=== PATIENT | female | born 1960 | race Caucasian/White ===

== ENCOUNTER 2017-05-31 18:51 | Inpatient (IN) | payer OTHER ==
[~2017-05-31] VITALS: Ht 167.6 cm; Wt 90.7 kg
--- NOTE | 2017-05-31 19:00 | NUR ---
REC'D PT FROM ER VIA [facility]. PT IS AAOX4. TELE #25 SR WITH ELEVATED T-WAVE. PT C/O 5/10 CHEST TIGHTNESS AND 6/10 BACK PAIN. LUNG SOUNDS CLEAR. NO SOB NOTED. 2+ EDEMA NOTED TO BLE. PT IS INCONTINENT OF URINE. IV NOTED TO RFA. INTACT AND PATENT. ORIENTED PT TO CALL LIGHT. BED IN LOWEST POSITION. WILL ENDORSE TO PRIMARY RN.
[2017-05-31 19:02] VITALS: BP 165/103
[2017-05-31] MEDS ORDERED: ZOFRAN8 MG PO (19:27)
[2017-05-31] MEDS ORDERED: HYDROCORTISONE20 MG PO (19:28)
[2017-05-31] MEDS ORDERED: CYMBALTA60 M1 PO (19:28)
[2017-05-31] MEDS ORDERED: NORCO1 TA2 PO (19:29)
[2017-05-31] MEDS ORDERED: GOOD SENSE OMEP20 MG PO (19:30)
[2017-05-31] MEDS ORDERED: PREMPRO 0.625-1 EACH PO (19:30)
[2017-05-31] MEDS ORDERED: MSC15 PO (19:31)
[2017-05-31] MEDS ORDERED: FLO1 PO (19:32)
--- NOTE | 2017-05-31 20:00 | NUR ---
RECEIVED REPORT FROM MAR DIAZ. ASSESSED PT, IN NO ACUTE DISTRESS. STILL COMPLAINING OF 5/10 BACK PAIN. WILL MEDICATE PER PRN ORDERS. TELE MON ATTACHED. DENIES OF ANY CHEST DISCOMFORT AT THIS TIME. ON TELE MON 25 ST/SR WITH T WAVE ELEVATION ON THE MONITOR. IV ON RFA INFILTRATED AND REPLACED ON L HAND 22 GAUGE. NO SOB. LUNGS CTA. IN RA WITH SAT OF 97%. PT REPORTS OF URINE INCONTINENCE BUT INFORMED PT THAT WE WILL NEED TO OBTAIN URINE SAMPLE ONCE SHE FEELS THE NEED TO VOID. WILL MANAGE PT'S BP AND PAIN MANAGEMENT. SAFETY MEASURES ENSURED. CALL LIGHT WITHIN REACH. WILL CONT TO MONITOR PT.
--- NOTE | 2017-05-31 20:05 | NUR ---
PT AAOX4. STILL PRESENTING WITH L ARM NUMBNESS AND TINGLING. HAND WORK STATION SUPPORT SPECIALIST EQUAL ON BI HANDS. ROM ACTIVE ON ALL JOINTS. NEG ON DROOP/PARALYSIS. GRIN EQUAL IN SYMMETRY. GEN WEAKNESS BUT ABLE TO STAND AND AMBULATE WITH MINIMAL ASSISTANCE. DENIES OF OLIVER/DIZZINESS. WILL CONT TO MONITOR.
[2017-05-31 20:18] LABS: BASOPHIL % 0.1 % (0-2); PLATELET COUNT 370 x10^3mcL (130-400)
[2017-05-31 20:22] LABS: RED CELL DISTRIBUTION WIDTH 15.7 % (11.5-14.5)
[2017-05-31 20:40] VITALS: BP 162/88
[2017-05-31 20:41] LABS: T3 TOTAL 1.32 ng/mL
[2017-05-31 20:59] LABS: FREE T4 1.04 ng/dL (0.76-1.46); FREE THYROXINE INDEX 3.4 ug/dL (1.4-4.5); T4(THYROXINE) 9.7 ug/dL (4.7-13.3)
[2017-05-31 21:32] LABS: CALCIUM 9.1 mg/dL (8.5-10.1); CARBON DIOXIDE 31.2 mmol/L (21-32); CREATININE SERUM 1.2 mg/dL (0.6-1.0); MAGNESIUM 1.5 mg/dL (1.8-2.4); PHOSPHOROUS 2.7 mg/dL (2.5-4.9)
[2017-05-31 21:33] LABS: CHOLESTEROL/HDL RATIO 2.6
--- NOTE | 2017-05-31 21:33 | NUR ---
RECEIVED CALL REGARDING PT'S POTASSIUM CRITICAL LEVEL OF 2.9. PAGED DR. QUACH, WAITING FOR A CALL BACK.
[2017-05-31 21:36] LABS: POTASSIUM SERUM 2.9 mmol/L (3.5-5.1)
[2017-05-31 22:03] VITALS: BP 147/82
--- NOTE | 2017-05-31 23:46 | NUR ---
US CAROTID RESULT HAS CAME BACK. MADE DR QUACH AWARE.
[2017-06-01 02:12] LABS: microscopic required? YES; urine erythrocyte TRACE (NEGATIVE)
[2017-06-01 02:23] LABS: AMPHETAMINE QUAL UR NONE DETECTED (NEG <=1000)
--- NOTE | 2017-06-01 03:41 | NUR ---
PT TAKEN FOR HEAD CT BY CT. MAILE
--- NOTE | 2017-06-01 04:30 | NUR ---
PT TAKEN BACK FROM CT. PT'S L HAND IV ACCIDENTALLY REMOVED BY PT AND REPLACED WITH RFA 22 G. PT IN NO ACUTE DISTRESS AAOX4. ABLE TO AMBULATE WITH MINIMAL ASSISTANCE. NEG ON DROOP PARALYSIS. GRIN EQUAL. BI HAND SUMMER COUNSELOR EQUAL IN STRENGTH. DENIES OF OLIVER/DIZZINESS. SAFETY MEASURES ENSURED. CALL LIGHT IS WITHIN REACH.
--- NOTE | 2017-06-01 04:58 | NUR ---
RECEIVED CALL FROM ONLINE RADIOLOGY FOR HEAD CT RESULT. MADE DR QUACH AWARE. PT REMAINED ALERT AND ORIENTED THROUGH OUT. NEG ON DROOP/PARALYSIS. HAND HAMMER RUNNER STRONG AND EQUAL. GRIN SYMMETRICAL. ACTIVE ROM ON ALL EXTREMITIES. OBEYS COMMANDS. DENIES OF OLIVER/DIZZINESS. PAIN MANAGEMENT ENFORCED. SAFETY MEASURES WERE ENSURED. CALL LIGHT WITHIN REACH.
[2017-06-01 05:39] VITALS: BP 160/96
[2017-06-01 06:29] LABS: PLATELET COUNT 350 x10^3mcL (130-400)
[2017-06-01 06:35] LABS: CALCIUM 8.6 mg/dL (8.5-10.1); CARBON DIOXIDE 28.1 mmol/L (21-32); CREATININE SERUM 1.1 mg/dL (0.6-1.0); POTASSIUM SERUM 3.6 mmol/L (3.5-5.1)
[2017-06-01 06:37] LABS: RED CELL DISTRIBUTION WIDTH 15.9 % (11.5-14.5)
--- NOTE | 2017-06-01 07:20 | NUR ---
REASSESSMENT DONE. IV PATENT, INFUSING WELL TO RFA#22. HEATING PAD PLACED AT LOWER BACK. BED IN LOWEST POSITION, CALL LIGHT WITHIN REACH.
[2017-06-01 07:32] LABS: MAGNESIUM 1.6 mg/dL (1.8-2.4); PHOSPHOROUS 3.2 mg/dL (2.5-4.9)
[2017-06-01 07:43] LABS: BAND NEUTROPHIL 5 % (0-10); MONOCYTE 3 % (0-7); SEGMENTED NEUTROPHILS 82 % (37-75)
[2017-06-01 07:45] LABS: PLATELET MORPHOLOGY FEW LARGE PLATELETS; rbc morphology (normal/abnorm) NORMAL (NORMAL)
[2017-06-01 09:10] VITALS: BP 137/76
--- NOTE | 2017-06-01 11:20 | NUR ---
PT STATES PAIN TO LOWER BACK HAS DECREASED IN INTENSITY 4/10 AFTER MEDICATION ADMINISTRATION. HEATING PAD IN PLACE. CAQLL LIGHT WITHIN REACH.
[2017-06-01 13:54] VITALS: BP 134/84
--- NOTE | 2017-06-01 13:55 | NUR ---
PASSED Balanced. PT TOLERATED WELL. IV TO RFA INFILTRATED. IV DC'D CATHETER INTACT.
--- NOTE | 2017-06-01 14:30 | NUR ---
IV ACCESS RESTARTED TO LEFT HAND #24. IV FLUIDS RESTARTED. ACCESS ACQUIRED BY MAR DIAZ.
[2017-06-01] MEDS ORDERED: PREMPRO PO (16:19)
--- NOTE | 2017-06-01 17:00 | NUR ---
PT C/O PAIN 7/10 AT LOWER BACK. MEDICATED PER EMAR. PT TOLERATED WELL. PT C/O PAIN AT IV ACCESS SITE TO LEFT HAND. APPLIED ICE PACK TO SITE. PT REPORTS COMFORT. CALL LIGHT WITHIN REACH.
[2017-06-01 17:35] VITALS: BP 145/83
--- NOTE | 2017-06-01 18:15 | NUR ---
PT STATES BACK PAIN 5/10. REPORTS COMFORT UNLESS MOVING. DENIES CHEST PAIN AT BEDSIDE. CALL LIGHT WITHIN REACH.
--- NOTE | 2017-06-01 19:52 | NUR ---
RECEIVED REPORT FROM MAR PAIGE. PT RESTING IN BED COMFORTABLY IN NO ACUTE DISTRESS OR DISCOMFORT. AAOX4. DENIES OF OLIVER/DIZZINESS. ON TELE MON 25 SR/ST. DENIES OF ANY CHEST DISCOMFORT AT THIS TIME. PER PULSES MOD. TRACE EDEMA ON BLE. IN RA WITH SAT OF 98%. BREATHING EVENLY AND UNLABORED. NO SOB NOTED. CRACKLES ON RUL. CLEAR ON JOSE ON AUSCULTATION. BS ACTIVE. ABD SOFT AND OBESE. LAST BM TODAY FORMED STOOL PER PT. VOIDS FREELY WITHOUT ANY PAIN. GEN WEAKNESS. AMBULATES WITH MIN ASSIST. SKIN DRY AND INTACT. DENIES OF ANY PAIN AT THIS TIME. IV ON PATENT. SAFETY MEASURES ENSURED. INSTRUCTED PT TO CALL FOR ANY NEEDS/ASSISTANCE. CALL LIGHT WITHIN REACH. WILL CONT TO MONITOR PT.
[2017-06-01 22:17] VITALS: BP 111/66
--- NOTE | 2017-06-02 05:13 | NUR ---
PT HAD PERIODS OF HEADACHE. PAIN MANAGEMENT ENFORCED. DENIED ANY CHEST DISCOMFORT. SAFETY MEASURES WERE ENSURED. CALL LIGHT WITHIN REACH.
[2017-06-02 05:51] VITALS: BP 140/83
[2017-06-02 06:56] LABS: BASOPHIL % 0.1 % (0-2); PLATELET COUNT 365 x10^3mcL (130-400)
[2017-06-02 07:12] LABS: CALCIUM 8.3 mg/dL (8.5-10.1); CARBON DIOXIDE 28.4 mmol/L (21-32); CHLORIDE SERUM 104 mmol/L (98-107); GFR1 > 60 mL/min; GLUCOSE SERUM 111 mg/dL (74-106); POTASSIUM SERUM 3.2 mmol/L (3.5-5.1); SODIUM SERUM 141 mmol/L (136-145)
--- NOTE | 2017-06-02 07:20 | NUR ---
REASSESSMENT DONE. IV PATENT. DENIES PAIN AT SITE. STATES BACK PAIN UNDER CONTROL AT MOMENT. BED IN LOWEST POSITION, CALL LIGHT WITHIN REACH.
[2017-06-02 08:46] VITALS: BP 122/74
--- NOTE | 2017-06-02 09:15 | NUR ---
PASSED [facility]. PT TOLERATED WELL. NO DISTRESS AT MOMENT. CALL LIGHT WITHIN REACH.
[2017-06-02] MEDS ORDERED: ZOFRAN8 MG PO (09:59)
[2017-06-02] MEDS ORDERED: ECO81 PO (10:00)
[2017-06-02] MEDS ORDERED: METOPROLOL TART25 M1 PO (10:00)
[2017-06-02] MEDS ORDERED: ZES5 PO (10:00)
[2017-06-02] MEDS ORDERED: PRI20 PO (10:03)
[2017-06-02 12:27] VITALS: BP 149/94
--- NOTE | 2017-06-02 13:40 | NUR ---
DISCHARGE INSTRUCTIONS GIVEN TO PATIENT AND . BOTH VERBALIZED UNDERSTANDING FOR FOLLOW UP APPOINTMENTS, AND PRESCRIPTION ORDERS. IV DC'D CATHETER INTACT, NO PHLEBITIS. PT TRANSPORTED OUT OF UNIT SAFELY VIA WHEELCHAIR.
== END 2017-06-02 13:47 | disposition home or self-care (01) | DRG 203 ==
LOC: DU 18:51 → MU 06-02 09:26
PROVIDERS: Family Medicine; ADMIT Family Medicine
DX: M94.0 Chondrocostal junction syndrome [Tietze] (principal); E27.40 Unspecified adrenocortical insufficiency; H26.8 Other specified cataract; R73.03 Prediabetes; G90.8 Other disorders of autonomic nervous system; D72.829 Elevated white blood cell count, unspecified; E87.6 Hypokalemia; E83.42 Hypomagnesemia; Z53.29 Procedure and treatment not carried out because of patient's decision for other reasons; M54.5 Low back pain; Z79.899 Other long term (current) drug therapy; Z88.2 Allergy status to sulfonamides; Z88.5 Allergy status to narcotic agent
CPT/HCPCS: 82962; 83880; 84439; 97110-GP; J2270; J2405; J3475; J3480; J7030; Q0092

== ENCOUNTER 2018-11-22 14:19 | Inpatient (IN) | payer OTHER ==
[~2018-11-22] VITALS: Ht 167.6 cm; Wt 99.5 kg
[~2018-11-22 14:19] MED LIST: CYMBALTA60 M1 PO; ECO81 PO; FLO1 PO; GOOD SENSE OMEP20 MG PO; HYDROCORTISONE20 MG PO; METOPROLOL TART25 M1 PO; MSC15 PO; NORCO1 TA2 PO; PREMPRO 0.625-1 EACH PO; PREMPRO PO; PRI20 PO; ZES5 PO; ZOFRAN8 MG PO
[2018-11-22 16:49] LABS: PLATELET COUNT 396 x10^3mcL (130-400)
[2018-11-22 16:55] LABS: RED CELL DISTRIBUTION WIDTH 18.3 % (11.5-14.5)
[2018-11-22 17:08] LABS: BAND NEUTROPHIL 2 % (0-10); BASOPHIL 0 % (0-2); MONOCYTE 4 % (0-7); SEGMENTED NEUTROPHILS 88 % (37-75)
[2018-11-22 17:09] LABS: rbc morphology (normal/abnorm) NORMAL (NORMAL)
[2018-11-22 17:22] LABS: BILIRUBIN TOTAL 0.45 mg/dL (0.20-1.00); CALCIUM 8.7 mg/dL (8.5-10.1); CARBON DIOXIDE 27.8 mmol/L (21-32); CREATININE SERUM 1.8 mg/dL (0.6-1.0); MAGNESIUM 1.1 mg/dL (1.8-2.4); T4(THYROXINE) 5.7 ug/dL (4.7-13.3); TOTAL PROTEIN, SERUM 6.8 g/dL (6.4-8.2)
[2018-11-22 17:24] LABS: ALBUMIN 3.1 g/dL (3.4-5.0)
[2018-11-22 17:25] LABS: POTASSIUM SERUM 2.4 mmol/L (3.5-5.1)
[2018-11-22 17:42] LABS: microscopic required? YES; urine erythrocyte TRACE (NEGATIVE)
[2018-11-22 22:00] VITALS: BP 136/80
[2018-11-22 22:29] LABS: CALCIUM 7.7 mg/dL (8.5-10.1); CARBON DIOXIDE 23.1 mmol/L (21-32); CREATININE SERUM 1.7 mg/dL (0.6-1.0)
[2018-11-22 23:40] VITALS: BP 110/66
[2018-11-23 03:26] VITALS: BP 116/68
[2018-11-23 05:53] LABS: PLATELET COUNT 104 x10^3mcL (130-400); RED CELL DISTRIBUTION WIDTH 18.4 % (11.5-14.5)
[2018-11-23 05:57] LABS: MONOCYTE 1 % (0-7); SEGMENTED NEUTROPHILS 93 % (37-75)
[2018-11-23 06:02] LABS: acanthocyte (spur cell) 2+; rbc morphology (normal/abnorm) ABNORMAL (NORMAL)
[2018-11-23 07:05] LABS: CALCIUM 7.6 mg/dL (8.5-10.1); CARBON DIOXIDE 21.3 mmol/L (21-32); CREATININE SERUM 1.6 mg/dL (0.6-1.0); POTASSIUM SERUM 3.3 mmol/L (3.5-5.1)
[2018-11-23 07:30] VITALS: BP 110/64
[2018-11-23 11:30] VITALS: BP 85/70
[2018-11-23 16:29] VITALS: BP 83/55
[2018-11-23 19:40] VITALS: BP 139/52
[2018-11-23 22:37] LABS: AMPHETAMINE QUAL UR NONE DETECTED (See below)
[2018-11-24 03:56] VITALS: BP 140/97
[2018-11-24 05:35] LABS: PLATELET COUNT 329 x10^3mcL (130-400)
[2018-11-24 05:45] LABS: RED CELL DISTRIBUTION WIDTH 18.1 % (11.5-14.5)
[2018-11-24 05:54] LABS: BAND NEUTROPHIL 1 % (0-10); MONOCYTE 3 % (0-7); SEGMENTED NEUTROPHILS 86 % (37-75)
[2018-11-24 05:56] LABS: PLATELET MORPHOLOGY PLATELETS NORMAL; rbc morphology (normal/abnorm) ABNORMAL (NORMAL)
[2018-11-24 06:04] LABS: CALCIUM 8.3 mg/dL (8.5-10.1); CARBON DIOXIDE 24.6 mmol/L (21-32); CREATININE SERUM 1.8 mg/dL (0.6-1.0); POTASSIUM SERUM 3.2 mmol/L (3.5-5.1)
[2018-11-24 08:00] VITALS: BP 133/65
[2018-11-24 11:52] VITALS: BP 131/64
[2018-11-24 17:53] VITALS: BP 123/85
[2018-11-24 21:14] VITALS: BP 161/90
[2018-11-24 23:12] VITALS: BP 151/89
[2018-11-25 05:16] VITALS: BP 164/93
[2018-11-25 06:54] LABS: CALCIUM 8.6 mg/dL (8.5-10.1); CARBON DIOXIDE 23.2 mmol/L (21-32); CREATININE SERUM 1.6 mg/dL (0.6-1.0); POTASSIUM SERUM 4.1 mmol/L (3.5-5.1)
[2018-11-25 07:25] LABS: BASOPHIL % 0.2 % (0-2); PLATELET COUNT 331 x10^3mcL (130-400)
[2018-11-25 07:29] LABS: RED CELL DISTRIBUTION WIDTH 17.9 % (11.5-14.5)
[2018-11-25 09:59] VITALS: BP 161/84
[2018-11-25 15:11] VITALS: BP 153/71
[2018-11-25 17:29] VITALS: BP 155/71
[2018-11-25 21:26] VITALS: BP 165/94
[2018-11-25 22:00] VITALS: BP 147/77
[2018-11-26 06:26] VITALS: BP 155/95
[2018-11-26 10:15] VITALS: BP 160/83
[2018-11-26 13:20] VITALS: BP 163/89
[2018-11-26 16:54] VITALS: BP 180/96
[2018-11-26 17:44] VITALS: Ht 167.6 cm; Wt 99.5 kg
[2018-11-26 21:06] VITALS: BP 153/93
[2018-11-27] VITALS (7 sets, daily range): BP systolic 141–177; BP diastolic 79–101
== END 2018-11-27 20:45 | DRG 190 ==
LOC: ED 14:19 → IC 18:30 → DU 11-24 16:24
PROVIDERS: Emergency Medicine; Internal Medicine Cardiovascular Disease; ADMIT Internal Medicine
DX: I21.A1 Myocardial infarction type 2 (principal); E87.0 Hyperosmolality and hypernatremia; E11.22 Type 2 diabetes mellitus with diabetic chronic kidney disease; N17.9 Acute kidney failure, unspecified; E27.1 Primary adrenocortical insufficiency; E83.42 Hypomagnesemia; N18.3 Chronic kidney disease, stage 3 (moderate); B35.6 Tinea cruris; E86.0 Dehydration; I48.0 Paroxysmal atrial fibrillation; I25.10 Atherosclerotic heart disease of native coronary artery without angina pectoris; E66.9 Obesity, unspecified; G89.29 Other chronic pain; M54.9 Dorsalgia, unspecified; I12.9 Hypertensive chronic kidney disease with stage 1 through stage 4 chronic kidney disease, or unspecified chronic kidney disease; E87.6 Hypokalemia; N39.0 Urinary tract infection, site not specified; Z68.33 Body mass index [BMI] 33.0-33.9, adult; Z85.41 Personal history of malignant neoplasm of cervix uteri; Z92.21 Personal history of antineoplastic chemotherapy; Z88.2 Allergy status to sulfonamides; Z88.6 Allergy status to analgesic agent
CPT/HCPCS: 83880; 97112-GP; 97530-GP; A9500; J0282; J1160; J1720; J2270; J2543; J2550; J2785; J3475; J3480; J3490; J7030; J7040; J7060; Q0092; Q0162

== ENCOUNTER 2019-01-23 13:37 | Inpatient (IN) | payer OTHER ==
[~2019-01-23] VITALS: Ht 172.7 cm; Wt 77.1 kg
[2019-01-23 13:40] VITALS: Ht 172.7 cm; Wt 77.1 kg
--- NOTE | 2019-01-23 13:59 | NUR ---
PT AWAKE AND ALERT. PT C/O STOOL INCONTINENCE AND GENERALIZED WEAKNESS. PT ON FULL CM. CALL LIGHT WITHIN REACH. NAD. RESP E/U.
[2019-01-23 14:43] LABS: BASOPHIL % 0.3 % (0-2)
[2019-01-23 14:47] LABS: PLATELET COUNT 443 x10^3mcL (130-400); RED CELL DISTRIBUTION WIDTH 16.2 % (11.5-14.5)
[2019-01-23 14:57] LABS: microscopic required? NO
[2019-01-23 15:03] LABS: BILIRUBIN TOTAL 0.3 mg/dL (0.20-1.00); CALCIUM 8.7 mg/dL (8.5-10.1); CARBON DIOXIDE 26.3 mmol/L (21-32); CREATININE SERUM 1.4 mg/dL (0.6-1.0)
[2019-01-23 15:06] LABS: ALBUMIN 2.7 g/dL (3.4-5.0); POTASSIUM SERUM 2.6 mmol/L (3.5-5.1); TOTAL PROTEIN, SERUM 5.8 g/dL (6.4-8.2)
[2019-01-23 15:07] LABS: UA SPECIFIC GRAVITY <=1.005 (1.005-1.035); urine erythrocyte NEGATIVE (NEGATIVE)
--- NOTE | 2019-01-23 15:33 | NUR ---
MD FONG AND PRIMARY NURSE GABBIE INFORMED LACTIC ACID 2.7
--- NOTE | 2019-01-23 17:33 | NUR ---
PT MEDICATED PER DOCTORS ORDERS
[2019-01-23] MEDS ORDERED: FLO1 PO (17:34)
[2019-01-23] MEDS ORDERED: DULOXETINE60 MG PO (17:34)
[2019-01-23] MEDS ORDERED: ZESTRIL5 MG PO (17:35)
[2019-01-23] MEDS ORDERED: PEPCID20 MG PO (17:35)
[2019-01-23] MEDS ORDERED: NORCO1 TA2 PO (17:36)
[2019-01-23] MEDS ORDERED: METOPROLOL TART25 M1 PO (17:38)
[2019-01-23] MEDS ORDERED: [UNRECOGNIZED DRUG - CODE] PO (17:38)
[2019-01-23] MEDS ORDERED: GOOD SENSE ASPI81 M3 PO (17:39)
[2019-01-23] MEDS ORDERED: MORPHINE SULFAT15 M7 PO (17:39)
--- NOTE | 2019-01-23 17:43 | NUR ---
PT CLEANED AFTER LOSE STOOL. PT ON CLEAN DRY CHUCKS. SKIN BREAKDOWN NOTED TO BUTTOCKS, WITH ERYTHEMA NOTED. SKIN IS INTACT. PT REPORTS HAVING SENSITIVE SKIN FROM MULTIPLE STOOL INCONTINENCE WHILE AT HOME.
--- NOTE | 2019-01-23 17:53 | NUR ---
DR FONG NOTIFIED THAT PT QUALIFIES FOR SEVERE SEPSIS PER PURPLE SHEET PROTOCOL. ASKED IF HE WOULD LIKE ANTIBIOTICS, DR FONG STATES "I DO NOT THINK IT IS SEPSIS, BECAUSE HER WBCS ARE ELEVATED BECAUSE SHE IS ON STEROIDS"
--- NOTE | 2019-01-23 18:17 | NUR ---
REPORT CALLED TO ARUNA, WAITING FOR ADMIT ORDERS
--- NOTE | 2019-01-23 18:31 | NUR ---
RECEIVED PT VIA [facility] FROM E/D, ACCOMPANIED BY RN AND TRANSPORTER. PT DROWSY, "FATIGUED", BUT ORIENTED X 4, CALM, COOPERATIVE. ON TELE # 7, NSR, HR 95, DENIES CHEST PAIN OR DISCOMFORT AT THIS TIME. NO ACUTE RESPIRATORY DISTRESS NOTED. ABD SOFT, ROUND, NON-TENDER, NORMOACTIVE BOWEL SOUNDS X 4 QUADS, LAST BM 01/23/19, DIARRHEA, INCONTINENT OF BOWEL AND BLADDER. GENERALIZED WEAKNESS, USES WALKER AT HOME, REFUSES TO AMBULATE HERE 2/2 GENERALIZED WEAKNESS; FALL RISK PROTOCOL IN PLACE. PERIANAL MASD 2/2 INCONTINENCE, TX W/ Z-GUARD. C/O GENERALIZED ACHING BODY PAIN, 02/23. IV SITE LH 22G, CDI. ORIENTED PT TO ROOM, BED CONTROLS, CALL LIGHT SYSTEM. SIDE RAILS UP X 2, BED IN LOW POSITION. WILL ENDORSE TO MANDI/MAR ONTIVEROS.
[2019-01-23 18:58] LABS: PHOSPHOROUS 2.5 mg/dL (2.5-4.9)
[2019-01-23 19:16] VITALS: BP 146/87
[2019-01-23 19:44] LABS: AMPHETAMINE QUAL UR NONE DETECTED (See below)
--- NOTE | 2019-01-23 19:47 | NUR ---
RECIEVED PT IN BED RESTING COMFORTABLY, PT IS A/0 X 4 WITH NO ACUTE DISTRESS AT THIS TIME, PT HAS NO COMPLAINTS OF CHEST PAIN AT THIS TIME, PERIPHERAL PULSES PALPABLE, NO EDEMA NOTED AT THIS TIME, LUNG SOUNDS CTA NO SOB AT THIS TIME, PT BOWEL SOUNDS ACTIVE, ABD SOFT, ROUND, NONTENDER. PT REPORTS DIARRHEA, PT IS SOMETIMES INCONTINENT OF BOWEL AND BLADDER, PT REPORTS GENERALIZED WEAKNESS, SAFETY PRECAUTIONS IN PLACE WILL CONTINUE TO MONITOR.
[2019-01-23 20:36] VITALS: BP 143/65
--- NOTE | 2019-01-23 22:15 | NUR ---
PT COMPLAINS OF ANXIOUSNESS PAGED DR ALFREDO, NO NEW ORDERS AT THIS TIME.
--- NOTE | 2019-01-23 22:29 | NUR ---
DR ALFREDO ORDERED 0.5MG ATIVAN ONE TIME FOR ANXIOUSNESS, ADMINISTERED PER PHYSCIANS ORDER, EDUCATED PT OF SIDE EFFECTS AND TO USE CALL LIGHT IF IN NEED OF ANYTHING
--- NOTE | 2019-01-24 01:00 | NUR ---
PT COMPLAINING OF ACHING BACK PAIN, ADMINISTERED NORCO PRN PER PHYSICIANS ORDER, WILL CONTINUE TO MONITOR.
--- NOTE | 2019-01-24 01:45 | NUR ---
PT STATES A RELIEF OF ACHING BACK PAIN, SAFETY PRECAUTIONS IN PLACE WILL CONTINUE TO MONITOR
--- NOTE | 2019-01-24 05:18 | NUR ---
PT REMAINED A/OX4 THROUGH OUT SHIFT, PT HAD EPISODES OF PAIN THAT WERE TREATED WITH TYLENOL AND NORCO (SEE MAR). PT HAD NO EPISODES OF SOB OR CHEST PAIN THROUGH THE NIGHT, SAFETY PRECAUTIONS WERE MAINTAINED THROUGH THE NIGHT, WILL CONTINUE TO MONITOR AND ENDORSE CARE TO ONCOMING RN
[2019-01-24 06:29] VITALS: BP 157/78
--- NOTE | 2019-01-24 07:22 | NUR ---
ENDORSED CALL CARE TO DAYSHIFT NURSE, NO ACUTE DISTRESS NOTED. ALL COMFORT AND SAFETY MEASURES PROVIDED FOR, ALL QUESTIONS AND CONCERNS ADDRESSED.
--- NOTE | 2019-01-24 07:24 | NUR ---
RECEIVED BEDSIDE REPORT FROM DETECTIVE PRIVATE EYE NURSE AT THIS TIME. PATIENT RESTING IN BED AT THIS TIME. C/O 03/25 HEADACHE. WILL MEDICATE ORDERED. BREATHING EVEN AND UNLABORED. NO RESPIRATORY DISTRESS OR DISCOMFORT NOTED. PATIENT DENIES CHEST PAIN AT THIS TIME. IV TO RFA PATENT AND INTACT. ALL QUESTIONS AND CONCERNS ADDRESSED. ALL NEEDS ATTENDED TO. WILL CONTINUE TO MONITOR
[2019-01-24 08:09] LABS: BASOPHIL % 0.4 % (0-2)
[2019-01-24 08:10] LABS: PLATELET COUNT 410 x10^3mcL (130-400); RED CELL DISTRIBUTION WIDTH 15.7 % (11.5-14.5)
[2019-01-24 08:40] LABS: MAGNESIUM 2.6 mg/dL (1.8-2.4); PHOSPHOROUS 2.5 mg/dL (2.5-4.9)
[2019-01-24 08:51] LABS: FREE T4 1.25 ng/dL (0.76-1.46); T4(THYROXINE) 7.8 ug/dL (4.7-13.3)
[2019-01-24 09:10] VITALS: BP 151/93
[2019-01-24 09:50] LABS: CALCIUM 8.5 mg/dL (8.5-10.1); CARBON DIOXIDE 19.2 mmol/L (21-32); CREATININE SERUM 1.2 mg/dL (0.6-1.0); POTASSIUM SERUM 3.3 mmol/L (3.5-5.1)
--- NOTE | 2019-01-24 10:01 | NUR ---
ALL MORNING MEDICATIONS ADMINISTERED AT THIS TIME. PATIENT TOLERATED MEDICATIONS WELL. NO ADVERSE EFFECTS NOTED. ALL NEEDS ATTENDED TO. WILL CONTINUE TO MONITOR
--- NOTE | 2019-01-24 10:36 | NUR ---
PATIENT HAS ACTIVE ORDERS TO COLLECT STOOL TO CHECK FOR C. DIFFICILE. AT THIS TIME PATIENT DOES NOT MEET C.DIFFICILE CRITERIA PER NEW C. DIFFICILE POLICY. COMPLETED SUPPLEMENTARY DOCUMENTATION FOR C. DIFFICILE. CONSULTED CHARGE NURSE MYRIAM. WILL NOT COLLECT STOOL SAMPLE AT THIS TIME. WILL NOTIFY PHYSICIAN AT THIS TIME.
[2019-01-24 12:17] VITALS: BP 151/82
--- NOTE | 2019-01-24 13:12 | NUR ---
PATIENT SITTING UP IN BED EATING LUNCH AT THIS TIME. PATIENT TOLERATING DIET WELL. NO APPARENT DISTRESS OR DISCOMFORT NOTED. ALL NEEDS ATTENDED TO. WILL CONTINUE TO MONITOR
[2019-01-24 13:44] LABS: T3 TOTAL 0.83 ng/mL
--- NOTE | 2019-01-24 17:48 | NUR ---
PATIENT C/O HEADACHE. PRN TYLENOL PO ADMINISTERED. PATIENT TOLERATED WELL. NO ADVERSE EFFECTS NOTED. ALL NEEDS ATTENDED TO. WILL CONTINUE TO MONITOR
[2019-01-24 17:51] VITALS: BP 145/83
--- NOTE | 2019-01-24 18:56 | NUR ---
PATIENT RESTING COMFORTABLY IN BED AT THIS TIME. NO APPARENT DISTRESS OR DISCOMFORT NOTED. IV PATENT AND INTACT. ALL QUESTIONS AND CONCERNS ADDRESSED. SAFETY PRECAUTIONS MAINTAINED. ALL NEEDS ATTENDED TO. WILL ENDORSE ALL CARE TO JANITOR SUPERVISOR NURSE
--- NOTE | 2019-01-24 19:55 | NUR ---
RECEIVED PATIENT IN BED AWAKE,ALERT AND ORIENTED WITH NO SIGN OF DISTRESS. BREATHING EASYA ND NONLABOR SATTING AT 100% RA. ABDOMEN ROUND SOFTA ND NONTENDER WITH ACTIVE BS, HAD BM THIS AM SHIFT, LOOSE IN CONSISTENCY. IV TO RFA LEAKING AND TO RINSERT. WILL CONTINUE TO MONITOR. CALL LIGHT WITHINR EACH.
--- NOTE | 2019-01-24 20:24 | NUR ---
REINSERTED NEW IV TO RT WRIST INTACT FLUSHNG AND INFUSING WELL.
[2019-01-24 21:27] VITALS: BP 139/78
--- NOTE | 2019-01-25 01:04 | NUR ---
AWAKE ACCIDENTALLY PULLED HER IV TO RT WRIST. C/O LEG PAIN TYLENOL 650MG PO GIVEN. WILL CONTINUE TO MONITOR.
--- NOTE | 2019-01-25 02:11 | NUR ---
AWAKE AGITATED AND ANXIOUS ativan 1 mg po given as prescribed. will continue to monitor.
--- NOTE | 2019-01-25 05:08 | NUR ---
AWAKE MOST OF THE TIME C/O LEG PAINA ND BACKPAIN, MEDICATED FOR PAIN PRESCRIBED. CHECKED AT INTERVALS FOR NEEDS AND SAFETY.
[2019-01-25 05:40] VITALS: BP 135/82
[2019-01-25 06:55] LABS: CALCIUM 9.6 mg/dL (8.5-10.1); CARBON DIOXIDE 25.2 mmol/L (21-32); CREATININE SERUM 1.3 mg/dL (0.6-1.0); MAGNESIUM 2.2 mg/dL (1.8-2.4); PHOSPHOROUS 2.1 mg/dL (2.5-4.9); POTASSIUM SERUM 3.9 mmol/L (3.5-5.1)
--- NOTE | 2019-01-25 07:05 | NUR ---
RECEIVED BEDSIDE REPORT FROM CONSERVATION ASSISTANT NURSE AT THIS TIME. PATIENT RESTING COMFORTABLY IN BED. NO APPARENT DISTRESS OR DISCOMFORT NOTED. BREATHING EVEN AND UNLABORED. NO RESPIRATORY DISTRESS OR DISCOMFORT NOTED. NO INDICATION OF CHEST PAIN AT THIS TIME. PATIENT HAS NO IV ACCESS. ALL QUESTIONS AND CONCERNS ADDRESSED. WILL CONTINUE TO MONITOR
[2019-01-25 07:25] LABS: BASOPHIL % 0.4 % (0-2); PLATELET COUNT 361 x10^3mcL (130-400); RED CELL DISTRIBUTION WIDTH 15.8 % (11.5-14.5)
[2019-01-25 09:34] VITALS: BP 139/88
--- NOTE | 2019-01-25 10:00 | NUR ---
ALL MORNING MEDICATIONS ADMINISTERED. PATIENT TOLERATED MEDICATION ADMINISTRATION WELL. NO APPARENT DISTRESS NOTED. NO ADVERSE EFFECTS NOTED. ALL NEEDS ATTENDED TO. WILL CONTINUE TO MONITOR
--- NOTE | 2019-01-25 12:40 | NUR ---
ALL MORNING MEDICATIONS ADMINISTERED. PATIENT TOLERATED MEDICATION ADMINISTRATION WELL. NO APPARENT DISTRESS NOTED. NO ADVERSE EFFECTS NOTED. ALL NEEDS ATTENDED TO. WILL CONTINUE TO MONITOR
[2019-01-25 13:08] VITALS: BP 133/81
[2019-01-25 17:25] VITALS: BP 134/90
--- NOTE | 2019-01-25 17:55 | NUR ---
PATIENT SITTING UP IN BED EATING DINNER AT THIS TIME. TOLERATING DIET WELL. NO APPARENT DISTRESS OR DISCOMFORT NOTED. ALL NEEDS ATTENDED TO. WILL CONTINUE TO MONITOR
--- NOTE | 2019-01-25 19:11 | NUR ---
PATIENT RESTING COMFORTABLY IN BED. NO APPARENT DISTRESS OR DISCOMFORT NOTED. IV PATENT AND INTACT. ALL QUESTIONS AND CONCERNS ADDRESSED. SAFETY PRECAUTIONS MAINTAINED. ALL NEEDS ATTENDED TO. WILL ENDORSE ALL CARE TO ENERGY ATTORNEY NURSE
--- NOTE | 2019-01-25 19:41 | NUR ---
RECEIVED PATIENT IN BED AWAKE, ALERT AND ORIENTED WITH NO SIGN OF DISTRESS, BREATHINGE EASY AND NONLABOR SATTING AT 100% RA. TELE#7 NSR WITH ELEVATED T WAVE ON MONITOR, DENIES CHESTPAIN. ABDOMEN ROUND AND NONTENDER WITH ACTIVE BS. IV TO RW INTACT AND INFUSING WELL. WILL CONTINUE TO MONITOR. CALL LIGHT WITHIN REACH.
--- NOTE | 2019-01-25 21:06 | NUR ---
C/O BACKPAIN AND LEG PAIN MEDICATED WITH TRAMADOL 50MG PO PRESCRIBED. WILL CONTINUE TO MONITOR.
[2019-01-25 22:25] VITALS: BP 133/87
--- NOTE | 2019-01-26 00:49 | NUR ---
AWAKE C/O LEG PAIN AT SCALE OF 6/10 PER PATIENT. MEDICATED WITH TYLENOL PO PRESCRIBED. WILL CONTINUE TO MONITOR.
--- NOTE | 2019-01-26 05:13 | NUR ---
CHECKED AT INTERVALS FOR NEEDS AND SAFETY. C/O LEG PAIN X2 THE ENTIRE SHIFT AND MEDICATED PRESCRIBED. ALL NEEDS ATTENDED.
[2019-01-26 06:15] LABS: CALCIUM 9.2 mg/dL (8.5-10.1); CARBON DIOXIDE 28.3 mmol/L (21-32); CREATININE SERUM 1.5 mg/dL (0.6-1.0); MAGNESIUM 1.7 mg/dL (1.8-2.4)
--- NOTE | 2019-01-26 07:40 | NUR ---
ASLEEP ON INITIAL ROUNDS. NOT IN ANY DISTRESS. ALERT/ORIENTEDX4. DENIES ANY DISCOMFORT AT THIS TIME. BED LOW AND LOCKED. ALARM ON. CALL BAHENA WITHIN REACH.
[2019-01-26 08:23] LABS: BASOPHIL % 0 % (0-2); PLATELET COUNT 466 x10^3mcL (130-400); RED CELL DISTRIBUTION WIDTH 15.7 % (11.5-14.5)
[2019-01-26 09:45] VITALS: BP 124/87
[2019-01-26] MEDS ORDERED: DEC4 PO (10:26)
[2019-01-26] MEDS ORDERED: FLO1 PO (10:32)
--- NOTE | 2019-01-26 11:17 | NUR ---
NOTIFIED BY JESSEE LUIS THAT HR 150'S. PT. SEEN WORKING WITH PT. BP 130/90. NO CP NO SOB. EXPERIENCE SPECIALIST INGRID MADE AWARE. IN BED WATCHING TV. NOT IN ANY DISTRESS.
--- NOTE | 2019-01-26 13:08 | NUR ---
FOR DISCHARGE. PATIENT AWARE. DAUGHTER WILL GIVE HER A RIDE. DENIES ANY DISCOMFORT AT THIS TIME.
[2019-01-26 13:48] VITALS: BP 139/86
--- NOTE | 2019-01-26 14:19 | NUR ---
PHYSICAL THERAPY DAILY NOTES CO-SIGN All documentation done by the Personal Chef for 01/26/19 has been reviewed. I agree with the documentation. Reviewed/Co-Signed by: Marcelle Hagen PT Documentation Done by:MILDRED BHATT PTA
--- NOTE | 2019-01-26 14:36 | NUR ---
ATIVAN 1 MG PO GIVEN FOR ANXIETY. NO COMPLAITS OF PAIN AT THIS TIME. AWAITING FOR DAUGHTER TO PICK HER UP.
--- NOTE | 2019-01-26 17:21 | NUR ---
TEACHINGS RE- MEDS, DIET ACTIVITY, SAFETY, MD FOLLOW UP, WHEN TO CALL MD OR DIAL 911 DONE. STATED UNDERSTANDING. NO HEPLOCK DENIES ANY DISCOMFORT. DISCHARGED AT 1705.
== END 2019-01-26 17:05 | disposition home health service (06) | DRG 424 ==
LOC: ED 13:37 → DU 17:29 → MU 17:29 → DU 18:31 → MU 18:32 → DU 18:33
PROVIDERS: Emergency Medicine; ADMIT Family Medicine
DX: E27.2 Addisonian crisis (principal); N17.0 Acute kidney failure with tubular necrosis; E43 Unspecified severe protein-calorie malnutrition; E86.0 Dehydration; E87.6 Hypokalemia; E83.42 Hypomagnesemia; K52.9 Noninfective gastroenteritis and colitis, unspecified; D72.829 Elevated white blood cell count, unspecified; F41.9 Anxiety disorder, unspecified; M51.16 Intervertebral disc disorders with radiculopathy, lumbar region; I10 Essential (primary) hypertension; Z79.82 Long term (current) use of aspirin; Z68.25 Body mass index [BMI] 25.0-25.9, adult; Z92.21 Personal history of antineoplastic chemotherapy; Z85.41 Personal history of malignant neoplasm of cervix uteri; G62.9 Polyneuropathy, unspecified
CPT/HCPCS: 36600; 82962; 84439; 87804; 97110-GP; 97116-GP; 97530-GP; J1100; J1885; J2060; J2405; J3010; J3475; J3480; J7030; J8540; Q0092

== ENCOUNTER 2019-01-30 11:44 | Inpatient (IN) | payer OTHER ==
[~2019-01-30] VITALS: Ht 172.7 cm; Wt 71.3 kg
[~2019-01-30 11:44] MED LIST changes: +DEC4 PO; +DULOXETINE60 MG PO; +GOOD SENSE ASPI81 M3 PO; +MORPHINE SULFAT15 M7 PO; +PEPCID20 MG PO; +ZESTRIL5 MG PO; +[UNRECOGNIZED DRUG - CODE] PO
[2019-01-30 13:23] LABS: CALCIUM 9.9 mg/dL (8.5-10.1); CARBON DIOXIDE 27.7 mmol/L (21-32); CHLORIDE SERUM 97 mmol/L (98-107); CREATININE SERUM 1.4 mg/dL (0.6-1.0); GFR1 41 mL/min; GLUCOSE SERUM 133 mg/dL (74-106); POTASSIUM SERUM 4.5 mmol/L (3.5-5.1); SODIUM SERUM 135 mmol/L (136-145)
[2019-01-30 13:24] LABS: PLATELET COUNT 459 x10^3mcL (130-400); RED CELL DISTRIBUTION WIDTH 15.6 % (11.5-14.5)
[2019-01-30 13:28] LABS: ALBUMIN 3.3 g/dL (3.4-5.0); ALKALINE PHOSPHATASE 70 U/L (46-116); ALT/SGPT 137 U/L (14-59); AST/SGOT 35 U/L (15-37); BILIRUBIN TOTAL 0.47 mg/dL (0.20-1.00); TOTAL PROTEIN, SERUM 6.8 g/dL (6.4-8.2)
[2019-01-30 13:45] LABS: microscopic required? YES; urine erythrocyte NEGATIVE (NEGATIVE)
[2019-01-30 13:51] LABS: BAND NEUTROPHIL 4 % (0-10); BASOPHIL 0 % (0-2); MONOCYTE 5 % (0-7); SEGMENTED NEUTROPHILS 86 % (37-75); rbc morphology (normal/abnorm) ABNORMAL (NORMAL)
[2019-01-30 13:52] LABS: PLATELET MORPHOLOGY PLATELETS INCREASED
[2019-01-30 15:43] VITALS: BP 127/94
[2019-01-30 15:54] VITALS: Ht 172.7 cm; Wt 71.3 kg
[2019-01-30 18:58] VITALS: BP 104/67
[2019-01-30 19:50] VITALS: BP 110/70
[2019-01-31 04:55] VITALS: BP 133/64
[2019-01-31 06:33] LABS: BASOPHIL % 0.1 % (0-2); PLATELET COUNT 354 x10^3mcL (130-400)
[2019-01-31 06:58] LABS: RED CELL DISTRIBUTION WIDTH 15.6 % (11.5-14.5)
[2019-01-31 06:59] LABS: BILIRUBIN TOTAL 0.3 mg/dL (0.20-1.00); CALCIUM 8.6 mg/dL (8.5-10.1); CARBON DIOXIDE 24.9 mmol/L (21-32); CREATININE SERUM 1.2 mg/dL (0.6-1.0); MAGNESIUM 1.6 mg/dL (1.8-2.4); PHOSPHOROUS 3.4 mg/dL (2.5-4.9); POTASSIUM SERUM 3.9 mmol/L (3.5-5.1)
[2019-01-31 07:04] LABS: TOTAL PROTEIN, SERUM 5.2 g/dL (6.4-8.2)
[2019-01-31 07:07] LABS: ALBUMIN 2.4 g/dL (3.4-5.0)
[2019-01-31 09:14] VITALS: BP 130/74
[2019-01-31 12:45] VITALS: BP 142/70
[2019-01-31 17:08] VITALS: BP 137/80
[2019-01-31 21:13] VITALS: BP 140/76
[2019-02-01 04:43] VITALS: BP 159/85
[2019-02-01 06:44] LABS: ALBUMIN 2.6 g/dL (3.4-5.0); BILIRUBIN TOTAL 0.33 mg/dL (0.20-1.00); CALCIUM 9.3 mg/dL (8.5-10.1); CARBON DIOXIDE 25.4 mmol/L (21-32); CREATININE SERUM 1.3 mg/dL (0.6-1.0); MAGNESIUM 2.1 mg/dL (1.8-2.4); PHOSPHOROUS 3.3 mg/dL (2.5-4.9); POTASSIUM SERUM 3.9 mmol/L (3.5-5.1); TOTAL PROTEIN, SERUM 5.4 g/dL (6.4-8.2)
[2019-02-01 09:09] VITALS: BP 132/80
[2019-02-01 12:23] VITALS: BP 127/67
[2019-02-01 17:41] VITALS: BP 148/77
[2019-02-01 19:30] VITALS: BP 136/86
[2019-02-02] VITALS (7 sets, daily range): BP systolic 113–162; BP diastolic 75–93
[2019-02-02 06:50] LABS: BASOPHIL % 0.2 % (0-2); PLATELET COUNT 388 x10^3mcL (130-400)
[2019-02-02 07:02] LABS: CALCIUM 8.9 mg/dL (8.5-10.1); CARBON DIOXIDE 25.5 mmol/L (21-32); CREATININE SERUM 1.2 mg/dL (0.6-1.0); POTASSIUM SERUM 4.4 mmol/L (3.5-5.1)
[2019-02-03 06:09] VITALS: BP 140/78
[2019-02-03 07:16] LABS: PLATELET COUNT 385 x10^3mcL (130-400)
[2019-02-03 07:25] LABS: BASOPHIL % 0 % (0-2)
[2019-02-03 07:30] LABS: CALCIUM 9.7 mg/dL (8.5-10.1); CARBON DIOXIDE 21.2 mmol/L (21-32); CREATININE SERUM 1.1 mg/dL (0.6-1.0); POTASSIUM SERUM 4.1 mmol/L (3.5-5.1)
[2019-02-03 09:47] VITALS: BP 115/82
[2019-02-03 14:04] VITALS: BP 115/82
[2019-02-03 17:40] VITALS: BP 151/95
== END 2019-02-03 20:06 | disposition home or self-care (01) | DRG 137 ==
LOC: ED 11:44 → DU 14:33 → MU 02-02 17:36
PROVIDERS: Emergency Medicine; Internal Medicine; ADMIT Internal Medicine
DX: J15.0 Pneumonia due to Klebsiella pneumoniae (principal); N17.9 Acute kidney failure, unspecified; E87.2 Acidosis; E27.1 Primary adrenocortical insufficiency; N39.0 Urinary tract infection, site not specified; D72.829 Elevated white blood cell count, unspecified; R53.81 Other malaise; N18.9 Chronic kidney disease, unspecified; I12.9 Hypertensive chronic kidney disease with stage 1 through stage 4 chronic kidney disease, or unspecified chronic kidney disease; Z92.3 Personal history of irradiation; Z92.21 Personal history of antineoplastic chemotherapy; Z85.41 Personal history of malignant neoplasm of cervix uteri; Z98.51 Tubal ligation status; Z88.6 Allergy status to analgesic agent; Z88.2 Allergy status to sulfonamides
CPT/HCPCS: 97116-GP; 97530-GP; J0696; J1956; J2270; J2405; J3475; J7030; J7042; J8540; Q0092

== ENCOUNTER 2019-02-06 22:35 | Inpatient (IN) | payer OTHER ==
[~2019-02-06] VITALS: Ht 167.6 cm; Wt 72.8 kg
--- NOTE | 2019-02-06 22:48 | NUR ---
PT BIB AMBULANCE FOR GENERALIZED WEAKNESS. PER FRONT OFFICE DIRECTOR SON CALLED AMBULANCE BECAUSE MOTHER IS UNABLE TO WALK TO THE BATHROOM. PT IS USUALLY ABLE TO USE WALKER AND AMBULATE TO BATHROOM INDEPENTLY. BS IN TRANSPORT WAS 153. PT WAS TACHY UPON TRANSPORT AND CONTINUES TO HAVE TACHYCARDIA. PT STS SHE HAS HAD DIAHHREA FOR 3 WEEKS, BUT HAS HAD 3 EPISODES TODAY, THE LAST TIME SHE WAS UNABLE TO GET TO THE BATHROOM. PT ALSO STS THE LAST FEW DAYS SHE HAS HAD VISION CHANGES TO THE LEFT EYE. NO S/S OF DISTRESS. RESP E/U. PT A/O X4. TALKING IN COMPLETE SENTENCES. PT STS SHE IS IN 9/10 PAIN IN BILATERAL KNEES, THIGHS AND LOWER BACK. AWAITING MSE. COMFORT MEASURES IMPLEMENTED. CALL LIGHT W/IN REACH. WILL CONTINUE TO MONITOR.
--- NOTE | 2019-02-06 23:37 | NUR ---
PORTABLE XRAY AT BEDSIDE
--- NOTE | 2019-02-06 23:50 | NUR ---
LAB AT BEDSIDE
[2019-02-07] VITALS (7 sets, daily range): BP systolic 109–122; BP diastolic 63–82; Ht 167.6 cm; Wt 72.8 kg
[2019-02-07 00:08] LABS: PLATELET COUNT 326 x10^3mcL (130-400)
[2019-02-07 00:15] LABS: RED CELL DISTRIBUTION WIDTH 16.2 % (11.5-14.5)
[2019-02-07 00:24] LABS: CARBON DIOXIDE 23.3 mmol/L (21-32); CHLORIDE SERUM 99 mmol/L (98-107); CREATININE SERUM 1.7 mg/dL (0.6-1.0); GFR1 33 mL/min; GLUCOSE SERUM 114 mg/dL (74-106); POTASSIUM SERUM 4.1 mmol/L (3.5-5.1); SODIUM SERUM 134 mmol/L (136-145)
[2019-02-07 00:28] LABS: ALBUMIN 2.3 g/dL (3.4-5.0); ALKALINE PHOSPHATASE 48 U/L (46-116); ALT/SGPT 54 U/L (14-59); AST/SGOT 6 U/L (15-37); BILIRUBIN TOTAL 0.3 mg/dL (0.20-1.00); TOTAL PROTEIN, SERUM 4.7 g/dL (6.4-8.2)
--- NOTE | 2019-02-07 00:33 | NUR ---
PT RESTING IN POSITION OF COMFORT. PT IS A/O X4. PT RESPS ARE E/U. CALL LIGHT WITHIN REACH OF PT. NO ACD
[2019-02-07 01:18] LABS: MONOCYTE 6 % (0-7); SEGMENTED NEUTROPHILS 90 % (37-75)
[2019-02-07 01:19] LABS: rbc morphology (normal/abnorm) ABNORMAL (NORMAL)
[2019-02-07] MEDS ORDERED: METOPROLOL TART50 MG PO (02:19)
[2019-02-07] MEDS ORDERED: IBUPROFEN400 MG PO (02:19)
[2019-02-07] MEDS ORDERED: FLUDROCORTISON0.1 MG PO (02:19)
[2019-02-07] MEDS ORDERED: ZESTRIL20 MG PO (02:20)
[2019-02-07] MEDS ORDERED: EPZICOM1 TAB (02:20)
--- NOTE | 2019-02-07 02:39 | NUR ---
PT MEDICATED PER ORDER. PT VERBALIZED UNDERSTANDING OF MEDICATION TEACHING. SEE EMAR FOR DETAILS.
--- NOTE | 2019-02-07 02:40 | NUR ---
REPORT CALL TO MAR CORRAL TO ASSUME CARE OF PT
--- NOTE | 2019-02-07 04:51 | NUR ---
RECEIVED PT FROM ER VIA MLIORNAN ACCOMPANIED BY THE ER NURSE. PT IS A/A/O X4. DENIES DIZZINESS AND HEADACHE. BREATH SOUNDS CLEAR. BREATHING EVEN AND UNLABORED ON ROOM AIR, SPO2 99%. DENIES CHEST PAIN AND PRESSURE. ON TELE # 11, NORMAL SINUS RHYTYM ON THE MONITOR. BOWEL SOUNDS ACTIVE. NO C/O N/V AND ABD PAIN. NO C/O DIARRHEA THUS FAR AFTER ER GAVE ANTI DIARRHEA MEDICATION PER PT. C/O MILD GENERALIZED WEAKNESS. IV INTACT ON THE LAC INFUSING WITH LEVAQUIN AT 100 ML/HR. MADE PT COMFORTABLE. PLACED CALL LIGHT WITH IN REACH. WILL CONTINUE TO MONITOR.
--- NOTE | 2019-02-07 05:18 | NUR ---
PT C/O GENERALIZED PAIN. GAVE PT NORCO PO. PT TOLERATED IT WELL. IV INTACT ON THE LAC INFUSING WITH NS AT 100 ML/HR. WILL CONTINUE TO MONITOR.
--- NOTE | 2019-02-07 09:35 | NUR ---
AT 0710 - RECEIVED PATIENT FROM NIGHT NURSE. AWAKE, ALERT AND ORIENTED X 4. MONITOR SHOWING SINUS RHYTHM; RATE 70'S. IV INFUSING NS AT 100 ML/HR. VOIDED 500 ML YELLOW URINE IN BEDPAN. AT 0845 - HAS EATEN BREAKFAST. RESTING QUIETLY.
--- NOTE | 2019-02-07 10:56 | NUR ---
PATIENT C/O CRAMPING PAIN IN BLE. MEDICATED WITH NORCO PER EMAR.
[2019-02-07 11:17] LABS: PLATELET COUNT 334 x10^3mcL (130-400)
[2019-02-07 11:57] LABS: BAND NEUTROPHIL 5 % (0-10); BASOPHIL 0 % (0-2); MONOCYTE 2 % (0-7); SEGMENTED NEUTROPHILS 85 % (37-75)
[2019-02-07 11:58] LABS: rbc morphology (normal/abnorm) ABNORMAL (NORMAL)
[2019-02-07 12:01] LABS: PLATELET MORPHOLOGY PLT CLUMPS SEEN
--- NOTE | 2019-02-07 13:07 | NUR ---
SEEN BY DR LYON. NEW ORDERS RECEIVED. PATIENT STIL C/O PAIN. ALSO RECEIVED ORDER FOR TORADOL.
--- NOTE | 2019-02-07 14:52 | NUR ---
AT 1435 - STIL C/O PAIN IN BLE DESPITE HAVING RECEIVED TORADOL. NOW MEDICATED WITH IV MORPHINE 1 MG PER EMAR. PATIENT MADE COMFORTABLE.
--- NOTE | 2019-02-07 15:11 | NUR ---
PATIENT REPORTS SOME RELIEF OF PAIN. POSTION CHANGED.
--- NOTE | 2019-02-07 17:59 | NUR ---
SEEN AND EXAMINED BY DR RUIZ. PATIENT SITTING UP INB ED EATING DINNER.
--- NOTE | 2019-02-07 19:00 | NUR ---
AWAKE, ALERT AND ORIENTED. VSS. AFEBRILE. PAIN APPEARS UNDER BETTER CONTROL THIS PM. IV INFUSING NS AT 100 ML/HR. VOIDING IN BEDPAN. CARE ENDORSED TO NIGHT NURSE.
--- NOTE | 2019-02-07 19:14 | NUR ---
CALLED DR. LYON REGARDING THE ATB, NEW ORDER RECEIVED AND CARRIED OUT. WILL CONTINUE TO MONITOR THE PT.
--- NOTE | 2019-02-07 20:26 | NUR ---
RECEIVED PT FROM AM SHIFT, PT IS A/O X4, VERBAL REPSONSIVE, ABLE TO TELL WHAT SHE NEEDS. LUNG SOUND CLEAR BILATERAL, NO COUGH, NO SOB, PT IS ON TELE 11, NSR, DENY ANY CHEST PAIN OR DISCOMFORT, BOWEL SOUND PRESENT ALL 4 QUADRANTS, NO DISTENTION, NO TENDER. PEDAL PULSE PRESENT BOTH FEET, NO EDEMA, THERE IS KNIK SHAPE ERYTHEMA AT LEFT FOOT. IV AT LEFT AC, NO LEAKING, NO INFILTRAITON. ALL ADLS ASSIST, ALL NEED MET, WILL CONTINUE TO MONITOR.
--- NOTE | 2019-02-07 21:52 | NUR ---
PT RECIEVED FROM MAR EDGE, PT IS ALERT AND ORIENTED X3, CALM AND COOPERATIVE WITH CARE. PT COMPLAINS OF LEFT FOOT PAIN AND STATES PAIN IS 10/10, PT STATES PAIN IS DULL AND ACHING. MORPHINE SULFATE SCHEDULED MEDICATION GIVEN. SAFETY AND COMFORT MEASURES MAINTAINED, BED IN LOWEST POSITION, CALL LIGHT WITHIN REACH.
--- NOTE | 2019-02-08 00:33 | NUR ---
PT COMPLAINING OF LOWER BACK PAIN, PT STATES PAIN IS DULL AND ACHING AND IS 9/10. PT MEDICATED WITH PRN NORCO AND WILL REASSESS PAIN LEVEL. PT HAS BEEN CALM AND COOPERATIVE WITH CARE, SAFETY AND COMFORT MEASURES MAINTAINED, BED IN LOWEST POSITION, CALL LIGHT WITHIN REACH. WILL CONTINUE TO MONITOR.
--- NOTE | 2019-02-08 05:05 | NUR ---
PT HAS SLEPT IN VERY SHORT INTERVALS THROUGHOUT THE SHIFT. PT HAS BEEN CALM AND COOPERATIVE WITH CARE. PT HAS BEEN COMPLAINING OF BLE PAIN AND LOWER BACK PAIN, PT MEDICATED WITH PRN MEDICATION (SEE MAR). PT IV IS INFUSING AND INTACT AT THIS TIME. NO SOB NOTED, NO ACUTE RESP DISTRESS NOTED. SAFETY AND COMFORT MEASURES MAINTAINED, BED IN LOWEST POSITION, CALL LIGHT WITHIN REACH, WILL ENDORSE CONTINUITY OF CARE TO THE ONCOMING RN.
[2019-02-08 06:15] VITALS: BP 133/66
[2019-02-08 06:31] LABS: PLATELET COUNT 293 x10^3mcL (130-400)
[2019-02-08 06:39] LABS: CALCIUM 9.2 mg/dL (8.5-10.1); CREATININE SERUM 1.2 mg/dL (0.6-1.0); POTASSIUM SERUM 4.4 mmol/L (3.5-5.1)
[2019-02-08 06:59] LABS: BASOPHIL % 0 % (0-2)
[2019-02-08 09:44] VITALS: BP 104/63
--- NOTE | 2019-02-08 10:51 | NUR ---
AT 0705 - RECEIVED PATIENT FROM NIGHT NURSE. AWAKE, ALERT AND ORIETNED MONITOR SHOWING SINUS RHYTHM; RATE 89. NO C/O PAIN AT THIS TIME. IV IN LAC LEAKING. INFUSION STOPPED UNTIL IV RESITED. AT 0745 - UNSUCCESSFUL ATEMPT AT RESITING OF IV. PATIENT WILL EAT BREAKFAST. AT 0910 - IV INSERTED IN L HAND AND INFUSION OF NS RESUMED AT 100ML/HR. AT 0935 - GIVEN TYLANOL PER PATIENT REQUEST IN ADDITION TO MS CONTIN FOR C/O PAIN IN BLE. CLOTRIMAZOLE CREAM APPLIED TO RASH ON LEFT FOOT.
--- NOTE | 2019-02-08 12:33 | NUR ---
C/O LEG AND LOWER ABDOMINAL PAIN. MEDICATED WITH NORCO PER EMAR. SEEN BY DR LYON. NEW ORDERS RECEIVED.
[2019-02-08 12:39] VITALS: BP 130/67
--- NOTE | 2019-02-08 13:34 | NUR ---
STATUS CHANGED TO MED-SURG. PATIENT TAKEN OFF CARDIAC MONITORING.
[2019-02-08 17:12] VITALS: BP 146/76
--- NOTE | 2019-02-08 18:33 | NUR ---
QUIET AFTERNOON. PAIN UNDER CONTROL WITH NORCO PER EMAR. VSS. AFEBRILE. IV INFUSING NS AT 100 ML/HR. PATIENT EATING WELL. SOME URINARY INCONTINENCE. NO DIARRHEA. NO BM TODAY. PATIENT IS PLEASANT; WATCHING TV. WILL ENDORSE CARE TO NIGHT NURSE.
--- NOTE | 2019-02-08 19:45 | NUR ---
ALERT /OTIETED X4. SKIN WARM AND DRY TO TOUCH. RESPIRATIION EVEN AND UNLABORED. PAIN LEVEL 2/10, TOLERABLE AT THIS TIME, PT CLAIMED JUST WAITH FOR MS CONTIN ROUTINE MEDICATION FOR HER PAIN. LEFT FOOT WITH RASHES NONDALTON SHAPE, INTERMITTENT ITCHINESS , PT ON CLOTRIMAZOLE WILL APPLY ORDERED. PLACED CALL LIGHT WITHINR EACH, INSTRUCTED TO CALL FOR ANY ASSISTANCE NEEDED AND VERBALIZED UNDERSTANDING.
[2019-02-08 20:47] VITALS: BP 139/81
--- NOTE | 2019-02-08 21:00 | NUR ---
PT ASKING FOR ANTI-ANXIETY AND ASLEEPING PILL. ATIVAN 1MG PO ORDERED/AMBIEN 5MG PO ORDERED. ABLE TO REPOSITION SELF IN BED.
--- NOTE | 2019-02-08 23:55 | NUR ---
EYES CLOSED, NO FACIAL GRIAMCING NOTED. RESPIRATION EVEN AND UNLABORED. APPARENTLY COMFORTABLE AT THIS TIME.
--- NOTE | 2019-02-09 00:45 | NUR ---
PT WALKED UP CRYING COMPLAINING OF SEVERE PAIN AT THE BLE. MORPHINE 2MG IVP GIVEN PRN MEDICATION. ORAL FLUIDS GIVEN . NO S/S OF ASPIRATION NOTED.
--- NOTE | 2019-02-09 01:15 | NUR ---
EYES CLOSED, APPARENTLY ASLEEP SOUNDLY. NO S/S OF ACUTE DISTRESS.
--- NOTE | 2019-02-09 02:46 | NUR ---
AWAKE AT THIS TIME C/O HEADACHE AND ALSO ASKING FOR ATIVAN, PT CLAIMED FEELS JITTERY/NERVOUS. TYLENOL 325MG PO/ATIVAN 1MG PO GICEN ORALLY TOELRATIGN WELL.
[2019-02-09 05:38] VITALS: BP 147/71
[2019-02-09 06:25] LABS: PLATELET COUNT 332 x10^3mcL (130-400)
--- NOTE | 2019-02-09 06:29 | NUR ---
ALL DUE MEDICATIONS GIVEN AND WELL TOLERATED. NO S/S OF ACUTE DISTRESS. ALL NEEDS ATTENDED.
[2019-02-09 06:37] LABS: CALCIUM 9.7 mg/dL (8.5-10.1); CREATININE SERUM 1.1 mg/dL (0.6-1.0); POTASSIUM SERUM 4.2 mmol/L (3.5-5.1); RED CELL DISTRIBUTION WIDTH 15.9 % (11.5-14.5)
--- NOTE | 2019-02-09 07:30 | NUR ---
PT ENDORSE TO ME THIS MORNING. LAYING IN BED RESTING. AA/O X4 BREATHING EVEN AND UNLABORED ON RA. NO ACUTE RESP DISTRESS OR SOB NOTED. BOWEL SOUNDS ACTIVE IN ALL FOUR QUADS. VOIDS FREELY. AMB/ GEN WEAKNESS/ USES WALKER AT HOME. IV OT HE L HAND INTACT AND PATENT. CALL LIGHT IN REACH.BED IN LOW POSITION. WILL CONTINUE TO MONITOR.
[2019-02-09 09:00] VITALS: BP 110/80
--- NOTE | 2019-02-09 12:30 | NUR ---
PT C/O RIGHT ARM PAIN, MEDICATED PER EMAR.
[2019-02-09 14:17] LABS: BAND NEUTROPHIL 3 % (0-10); MONOCYTE 2 % (0-7); SEGMENTED NEUTROPHILS 88 % (37-75)
[2019-02-09 14:18] LABS: PLATELET MORPHOLOGY PLATELETS NORMAL; rbc morphology (normal/abnorm) ABNORMAL (NORMAL)
[2019-02-09 16:38] VITALS: BP 128/76
--- NOTE | 2019-02-09 18:39 | NUR ---
NO ACUTE CHANGES AT THIS TIME. NO ACUTE RESP DISTRESS. DENIES ANY PAIN OR DISCOMFORT, MEDICATED PER EMAR. IV TO THE L HAND INTACT AND PATENT INFUSING AT 100ML/HR, NO REDNESS OR SWELLING NOTED. WILL ENDORSE TO INCOMING RN.
--- NOTE | 2019-02-09 19:42 | NUR ---
PT IS AWAKE AND ORIENTED X4. PT DENIES OLIVER OR DIZZINESS AT THIS TIME. PT IS CALM AND COOPERATIVE WITH NURSING CARE. PT DENIES CP OR PRESSURE. PT HAS PALPALBLE PULSES BILAT ALL EXTREMITIES WITH NO SIGNS OF EDEMA. PT HAS CLEAR LUNG SOUNDS. PT DENIES SOB. RESPIRATIONS EVEN AND UNLABORED ON ROOM AIR. PT HAS ACTIVE BOWEL SOUNDS. PT REPORTS NAUSEA BUT TOLERABLE WITH PRN ZOFRAN. PT DENIES LOOSE STOOL. PT DENIES ABD PAIN AT THIS TIME. PT VOIDS FREE WITH USE OF BED PACE, AND IS ON IV ANTIBIOTICS FOR UTI. PT HAS GEN WEAKNESS WITH BLE WEAKNESS WELL. PT STATES USING WC AT HOME. PT NOTED TO HAVE BUE BRUISING. LEFT FOOT RASH NOTED. IV FLUIDS NS RUNNING AT 100 ML/HR. PT ABLE TO REPOSITION SELF IN BED. NO SIGNS OF DISTRESS. WILL CONTINUE TO MONITOR.
[2019-02-09 21:00] VITALS: BP 190/97
[2019-02-09 21:50] VITALS: BP 168/89
[2019-02-09 22:45] VITALS: BP 151/82
--- NOTE | 2019-02-10 00:02 | NUR ---
PT DENIES OLIVER OR DIZZINESS. PT REMAINS RESTING IN BED AT THIS TIME. NO SIGNS OF DISTRESS. WILL CONTINUE TO MONITOR.
[2019-02-10 05:20] VITALS: BP 126/77
--- NOTE | 2019-02-10 06:32 | NUR ---
PT IS CALM AND COOPERATIVE WITH NURSING CARE. PT IS CONFUSED AT TIMES BUT ABLE TO BE REORIENTED. PT C/O ABD PAIN AND RECEIVED PRN NORCO X2 AND TOLERATED WELL. PT C/O N/V AND RECEIVED PHENERGAN X2 AND TOLERATED WELL. PT SLEPT ON AND OFF THROUGHOUT THE EVENING. ALL PT NEEDS MET. NO SIGNS OF DISTRESS. WILL ENDORSE TO DAY NURSE.
--- NOTE | 2019-02-10 07:30 | NUR ---
PT ENDORSE TO ME THIS MORNING. LAYING IN BED RESTING. AA/OX3-4 AT TIMES. MEDSURG. DENIES ANY CP OR PRESSURE. BREATHING EVEN AND UNLABORED ON RA, NO ACUTE RESP DISTRESS OR SOB NOTED. VOIDS FREELY/ INCONT AT TIMES,CALL FOR ASSIST. GEN WEAKNESS BLE, UES WALKER AT HOME. BUE BRUSING MELVINA, L FOOT RASH. NEW IV TO THE RFA INTACT AND PATENT. CALL LIGHT IN REACH BED IN LOW POSITION. WILL CONTINUE TO MONITOR.
[2019-02-10 08:03] LABS: CALCIUM 9.5 mg/dL (8.5-10.1); CARBON DIOXIDE 25.7 mmol/L (21-32); CREATININE SERUM 1.1 mg/dL (0.6-1.0); POTASSIUM SERUM 4.7 mmol/L (3.5-5.1)
[2019-02-10 08:08] VITALS: BP 133/78
[2019-02-10 08:24] LABS: PLATELET COUNT 309 x10^3mcL (130-400)
--- NOTE | 2019-02-10 08:41 | NUR ---
SCREEN FOR LOW REZA SCALE AT RISK PRESSURE ULCER INJURY PREVENTION INTERVENTIONS IN PLACE. -TURN AND REPOSITION PATIENT Q 2H OFFLOAD LEFT AND RIGHT HIPS -ASSESS AND MONITOR SKIN CONDITION DURING POSITION CHANGE -OFFLOAD BILATERAL HEELS BY PLACING PILLOWS UNDER CALVES AT ALL TIMES, UNLESS OTHERWISE CONTRAINDICATED -PRESSURE REDISTRIBUTION SURFACE THERAPY -KEEP SKIN CLEAN AND DRY AT ALL TIMES.
[2019-02-10 12:07] VITALS: BP 117/71
[2019-02-10 12:10] LABS: BAND NEUTROPHIL 0 % (0-10); BASOPHIL 0 % (0-2); MONOCYTE 5 % (0-7); PLATELET MORPHOLOGY PLATELETS INCREASED; SEGMENTED NEUTROPHILS 92 % (37-75)
--- NOTE | 2019-02-10 12:10 | NUR ---
PT C/O RIGHT BACK PAIN 02/23, MEDICATRED PER EMAR.
[2019-02-10 12:11] LABS: rbc morphology (normal/abnorm) ABNORMAL (NORMAL)
[2019-02-10 16:21] VITALS: BP 144/87
--- NOTE | 2019-02-10 16:30 | NUR ---
PT TOLERATED 100% OF DINNER. DENIES ANY CP OR PRESSURE/ DISCOMFORT. WILL CONTINUE PLAN OF CARE.
--- NOTE | 2019-02-10 18:57 | NUR ---
NO ACUTE CHANGES AT THIS TIME. NO ACUTE RESP DISTRESS OR SOB NOTED. WILL ENDORSE TO INCOMING RN.
--- NOTE | 2019-02-10 19:33 | NUR ---
RECEIVED PT FROM PREVIOUS SHIFT. PT A/OX4. DENIES PAIN. DENIES SOB ON RA. IV PATENT, INFUSING WELL WITH NO S/S OF INFILTRATION. CALL LIGHT WITHIN REACH, BED IN LOW POSITION. WILL CONTINUE TO MONITOR.
[2019-02-10 21:18] VITALS: BP 119/83
--- NOTE | 2019-02-11 02:05 | NUR ---
PT RESTING IN NO ACUTE DISTRESS. RR EVEN AND UNLABORED. CALL LIGHT WITHIN REACH, BED IN LOW POSITION. WILL CONTINUE TO MONITOR.
[2019-02-11 05:59] VITALS: BP 142/71
[2019-02-11 06:33] LABS: PLATELET COUNT 304 x10^3mcL (130-400)
[2019-02-11 06:40] LABS: RED CELL DISTRIBUTION WIDTH 16.8 % (11.5-14.5)
[2019-02-11 06:50] LABS: CALCIUM 9.9 mg/dL (8.5-10.1); CREATININE SERUM 1.1 mg/dL (0.6-1.0); POTASSIUM SERUM 4.8 mmol/L (3.5-5.1)
--- NOTE | 2019-02-11 07:01 | NUR ---
PHYSICAL THERAPY DAILY NOTES CO-SIGN All documentation done by the Airport Operations Crew Member for 02/11/19 has been reviewed. I agree with the documentation. Reviewed/Co-Signed by: Marcelle Hagen PT Documentation Done by:MILDRED BHATT PTA FOR 02/10/19
--- NOTE | 2019-02-11 07:13 | NUR ---
ASSUMED CARE OF PATIENT. RECIEVED REPORT FROM PREVIOUS RN.
[2019-02-11 08:09] VITALS: BP 143/85
--- NOTE | 2019-02-11 09:19 | NUR ---
PATIENT COMPLAINING OF NAUSEA. PRN PHENERGAN PROVIDED.
--- NOTE | 2019-02-11 10:26 | NUR ---
COMPLAING OF LOWER EXTREMITY AND LEFT ELBOW PAIN. PRN TYLENOL PROVIDED.
--- NOTE | 2019-02-11 11:38 | NUR ---
C/O 04/25 PAIN S/P PRN TYLENOL. PRN NORCO PROVIDED. PAIN IN BLE AND LUE.
[2019-02-11 11:53] LABS: ATYPICAL LYMPH 1 %; BAND NEUTROPHIL 1 % (0-10); BASOPHIL 0 % (0-2); MONOCYTE 6 % (0-7); SEGMENTED NEUTROPHILS 85 % (37-75)
[2019-02-11 11:54] LABS: PLATELET MORPHOLOGY PLATELETS INCREASED; rbc morphology (normal/abnorm) ABNORMAL (NORMAL)
--- NOTE | 2019-02-11 15:47 | NUR ---
C/O LUE BONE PAIN AND HEADACHE. PRN TYLENOL PROVIDED.
[2019-02-11 16:36] VITALS: BP 140/77
[2019-02-11 17:45] VITALS: BP 140/77
--- NOTE | 2019-02-11 17:46 | NUR ---
PATIENT INFORMED OF TRANSFER TO [facility]. PATIENT ANXIOUS AND HESITANT AT FIRST. CONCERNED ABOUT THE LEVEL OF CARE SHE WILL RECIEVE AT [facility]. REASSURED PATIENT THAT SHE WILL RECIEVE GOOD CARE AND IF AN ISSUE WERE TO [place] SHE IS RIGHT ACROSS THE STREET. WITH SOME REASSURANCE, PATIENT BECAME MORE OPTMISITC OF TRANSFER TO [facility].
--- NOTE | 2019-02-11 17:59 | NUR ---
REPORT GIVEN TO GUI MANUEL AT [facility].
--- NOTE | 2019-02-11 18:12 | NUR ---
PATIENT DISCHARGE PAPERWORK AND EDUCATIONAL MATERIALS PROVIDED. SIGNED ODCUMENTS PLACED IN CHART. TIRSO MAYES UPDATED ON PATIENT TRANSFER.
--- NOTE | 2019-02-11 18:34 | NUR ---
PATIENT IV D/C WITH CATHETER INTACT. PATIENT TO BE CLEANED AND PREPPED BY TELEPHONIC NURSE BEFORE TRANSFER.
--- NOTE | 2019-02-11 18:53 | NUR ---
PATIENT SEEN IN BED WAITING FOR TRANSFER TO [facility]. ALL BELONGINGS PACKED AND READY. WILL ENDORSE CARE TO ONCOMING RN.
--- NOTE | 2019-02-11 19:13 | NUR ---
WAITING FOR TRANSPORT,TO [facility] AT 7 PM SCHEDULE.
--- NOTE | 2019-02-11 20:12 | NUR ---
PREMIER HERE NOW,REPORT GIVEN,PAPERWORKS SIGNED
--- NOTE | 2019-02-11 20:16 | NUR ---
DC AT THIS TIME,WITH ALL BELONGINGS WITH HER.
--- NOTE | 2019-02-12 14:21 | NUR ---
PHYSICAL THERAPY DAILY NOTES CO-SIGN All documentation done by the Water Service Supervisor for 02/12/19 has been reviewed. I agree with the documentation. Reviewed/Co-Signed by: Marcelle Hagen PT Documentation Done by:MILDRED BHATT PTA FOR 02/11/19
== END 2019-02-11 21:12 | DRG 720 ==
LOC: ED 22:35 → DU 02-07 01:32 → MU 02-08 13:27
PROVIDERS: Emergency Medicine; ADMIT Internal Medicine
DX: A41.9 Sepsis, unspecified organism (principal); N17.9 Acute kidney failure, unspecified; E11.22 Type 2 diabetes mellitus with diabetic chronic kidney disease; E27.1 Primary adrenocortical insufficiency; N39.0 Urinary tract infection, site not specified; I10 Essential (primary) hypertension; K21.9 Gastro-esophageal reflux disease without esophagitis; Z16.12 Extended spectrum beta lactamase (ESBL) resistance; B96.89 Other specified bacterial agents as the cause of diseases classified elsewhere; E86.0 Dehydration; Z88.2 Allergy status to sulfonamides; Z88.6 Allergy status to analgesic agent; Z98.51 Tubal ligation status; Z85.89 Personal history of malignant neoplasm of other organs and systems; Z92.21 Personal history of antineoplastic chemotherapy
CPT/HCPCS: 87046; 87046-59; 97110-GP; 97116-GP; 97530-GP; J0696; J1956; J2270; J2405; J2550; J3490; J7030; J8540

== ENCOUNTER 2019-02-19 21:39 | Inpatient (IN) | payer OTHER ==
[~2019-02-19] VITALS: Ht 167.6 cm; Wt 72.6 kg
[~2019-02-19 21:39] MED LIST changes: +EPZICOM1 TAB; +FLUDROCORTISON0.1 MG PO; +IBUPROFEN400 MG PO; +METOPROLOL TART50 MG PO; +ZESTRIL20 MG PO
[2019-02-19 21:44] VITALS: Ht 167.6 cm; Wt 72.6 kg
[2019-02-19 22:47] LABS: PLATELET COUNT 246 x10^3mcL (130-400)
[2019-02-19 22:59] LABS: RED CELL DISTRIBUTION WIDTH 16.6 % (11.5-14.5)
[2019-02-19 23:00] LABS: CALCIUM 9.1 mg/dL (8.5-10.1); CARBON DIOXIDE 20.6 mmol/L (21-32); CHLORIDE SERUM 99 mmol/L (98-107); CREATININE SERUM 1.4 mg/dL (0.6-1.0); GFR1 41 mL/min; GLUCOSE SERUM 123 mg/dL (74-106); POTASSIUM SERUM 3.8 mmol/L (3.5-5.1); SODIUM SERUM 135 mmol/L (136-145)
[2019-02-19 23:03] LABS: ALBUMIN 2.4 g/dL (3.4-5.0); ALKALINE PHOSPHATASE 62 U/L (46-116); ALT/SGPT 38 U/L (14-59); AST/SGOT 17 U/L (15-37); BILIRUBIN TOTAL 0.22 mg/dL (0.20-1.00); MAGNESIUM 1.6 mg/dL (1.8-2.4); TOTAL PROTEIN, SERUM 5.3 g/dL (6.4-8.2)
[2019-02-19 23:16] LABS: UA SPECIFIC GRAVITY 1.015 (1.005-1.035); microscopic required? YES; urine erythrocyte NEGATIVE (NEGATIVE)
[2019-02-19 23:37] LABS: BAND NEUTROPHIL 1 % (0-10); MONOCYTE 1 % (0-7); SEGMENTED NEUTROPHILS 94 % (37-75)
[2019-02-19 23:40] LABS: acanthocyte (spur cell) 1+; rbc morphology (normal/abnorm) ABNORMAL (NORMAL); tear drop cell (dacryocyte) 1+
[2019-02-19 23:54] LABS: FREE T4 0.83 ng/dL (0.76-1.46); FREE THYROXINE INDEX 1.9 ug/dL (1.4-4.5); T4(THYROXINE) 5.1 ug/dL (4.7-13.3)
[2019-02-20 00:26] LABS: T3 TOTAL 0.46 ng/mL
[2019-02-20] MEDS ORDERED: DEXAMETHASONE4 MG PO (01:56)
[2019-02-20] MEDS ORDERED: MORPHINE SULFAT15 MG PO (01:58)
[2019-02-20] MEDS ORDERED: CYMBALTA60 M1 PO (02:00)
[2019-02-20] MEDS ORDERED: FLUDROCORTISON0.1 MG PO (02:02)
[2019-02-20 02:03] LABS: CHOLESTEROL/HDL RATIO 3.1
[2019-02-20 03:24] VITALS: BP 142/85
[2019-02-20 06:06] VITALS: BP 131/71
[2019-02-20 09:58] VITALS: BP 98/75
[2019-02-20 11:30] LABS: AMPHETAMINE QUAL UR NONE DETECTED (See below)
[2019-02-20 12:54] VITALS: BP 139/87
[2019-02-20 17:14] VITALS: BP 154/92
[2019-02-20 21:50] VITALS: BP 157/90
[2019-02-21 00:43] VITALS: BP 142/72
[2019-02-21 06:40] VITALS: BP 144/82
[2019-02-21 06:53] LABS: PLATELET COUNT 240 x10^3mcL (130-400)
[2019-02-21 06:57] LABS: CALCIUM 8.4 mg/dL (8.5-10.1); CARBON DIOXIDE 26.6 mmol/L (21-32); CHLORIDE SERUM 102 mmol/L (98-107); GFR1 > 60 mL/min; GLUCOSE SERUM 117 mg/dL (74-106); POTASSIUM SERUM 3.4 mmol/L (3.5-5.1); SODIUM SERUM 138 mmol/L (136-145)
[2019-02-21 07:35] LABS: RED CELL DISTRIBUTION WIDTH 16.6 % (11.5-14.5)
[2019-02-21 08:21] VITALS: BP 145/78
[2019-02-21 08:42] LABS: CALCIUM 8.5 mg/dL (8.5-10.1); CARBON DIOXIDE 22.3 mmol/L (21-32); CREATININE SERUM 1.1 mg/dL (0.6-1.0); POTASSIUM SERUM 3.6 mmol/L (3.5-5.1)
[2019-02-21 09:45] LABS: BILIRUBIN TOTAL 0.23 mg/dL (0.20-1.00)
[2019-02-21 10:20] LABS: ALBUMIN 1.9 g/dL (3.4-5.0); TOTAL PROTEIN, SERUM 4.3 g/dL (6.4-8.2)
[2019-02-21 12:55] VITALS: BP 124/70
[2019-02-21 14:26] LABS: BAND NEUTROPHIL 5 % (0-10); BASOPHIL 0 % (0-2); MONOCYTE 2 % (0-7); PLATELET MORPHOLOGY PLATELETS NORMAL; SEGMENTED NEUTROPHILS 90 % (37-75)
[2019-02-21 14:27] LABS: rbc morphology (normal/abnorm) ABNORMAL (NORMAL)
[2019-02-21 17:00] VITALS: BP 103/93
[2019-02-21 18:05] VITALS: BP 124/70
== END 2019-02-21 19:10 | DRG 201 ==
LOC: ED 21:39 → DU 02-20 01:23
PROVIDERS: Emergency Medicine; Internal Medicine Cardiovascular Disease; ADMIT Internal Medicine
DX: I48.0 Paroxysmal atrial fibrillation (principal); E11.42 Type 2 diabetes mellitus with diabetic polyneuropathy; E27.1 Primary adrenocortical insufficiency; M45.9 Ankylosing spondylitis of unspecified sites in spine; E83.42 Hypomagnesemia; D72.828 Other elevated white blood cell count; T38.0X5A Adverse effect of glucocorticoids and synthetic analogues, initial encounter; I48.92 Unspecified atrial flutter; N39.0 Urinary tract infection, site not specified; G89.29 Other chronic pain; M54.5 Low back pain; N18.9 Chronic kidney disease, unspecified; I12.9 Hypertensive chronic kidney disease with stage 1 through stage 4 chronic kidney disease, or unspecified chronic kidney disease; Z88.2 Allergy status to sulfonamides; Z88.6 Allergy status to analgesic agent; Z98.51 Tubal ligation status; Y92.89 Other specified places as the place of occurrence of the external cause
CPT/HCPCS: 84439; 87046; 87046-59; J1650; J1720; J1956; J2001; J2405; J2550; J3475; J3480; J3490; J7030; J8540; Q0162

== ENCOUNTER 2019-02-27 17:01 | Inpatient (IN) | payer OTHER ==
[~2019-02-27] VITALS: Ht 167.6 cm; Wt 67.0 kg
[~2019-02-27 17:01] MED LIST changes: +DEXAMETHASONE4 MG PO; +MORPHINE SULFAT15 MG PO
[2019-02-27 17:15] VITALS: Ht 167.6 cm; Wt 67.0 kg
--- NOTE | 2019-02-27 17:22 | NUR ---
PT ARRIVED VIA [facility] FROM [facility]. PT STS SHE HAS BEEN STAYING AT [facility] APPROX 1 WEEK SINCE DISCHARGE FROM [facility] PT STS SHE HAS CONTINUED TO FEEL WORSE AND WORSE AND HAS NOT BEEN GETTING THE TREATMENT SHE NEEDS AT [facility] AND THAT IS WHY SHE CALLED 911. PT ARRIVED WITH 22G IV IN CHEST THAT SHE STS WAS PLACED AT THE [facility] APPROX 1 WEEK AGO. PT REPORTS BEING A HARD STICK AND THAT SHE WAS INSTRUCTED TO KEEP IV IN PLACE. PT STS SHE IS NOT BEING TURNED OR ROTATED ALL [facility] AT THIS TIME AND FEELS SORES. PT IS TEARFUL AND STS SHE IS SCARED TO WHAT IS TO HAPPEN. PT REPORTS THE REASON FOR TRELLIS IS DUE TO BEING IMMOBILE AND UNABLE TO WALK FOR THE PAST COUPLE WEEKS AND AN INCREASED EXACERBATION OF RICKY'S DISEASE. PT HAS DISCOLORED FACIAL SKIN. AAOX4, RESPS E/U; ARRIVED IN A-FIB WHICH PT STS IS NORMAL FOR HER. CONNECTED TO FULL CHARGE MASTER ANALYST. AWAITING MSE.
--- NOTE | 2019-02-27 17:49 | NUR ---
LAB AT BEDSIDE
[2019-02-27 18:17] LABS: PLATELET COUNT 331 x10^3mcL (130-400)
[2019-02-27 18:19] LABS: RED CELL DISTRIBUTION WIDTH 16.9 % (11.5-14.5)
--- NOTE | 2019-02-27 18:32 | NUR ---
PT ARRIVED IN SATURATED DIAPER AND MODERATE SKIN DETERIORATION TO BUTTOCK AND GROIN AREA. PT STS AT PREVIOUS FACILITY, THEY DO NOT CHANGE HER OFTEN OR ROTATE HER AND THAT HER SORE HAS ONLY GOTTEN WORSE. PICTURES IN CHART. REMOVED DIAPER AND PLACED PT ON CLEAN CHUCKS. ASSISTED PT ONTO BED PACE; PT ABLE TO GIVE URINE SAMPLE DC'D IV IN CHEST THAT PT ARRIVED WITH. ANGIO CATH INTACT.
[2019-02-27 18:35] LABS: CALCIUM 9.1 mg/dL (8.5-10.1); CHLORIDE SERUM 98 mmol/L (98-107); CREATININE SERUM 0.9 mg/dL (0.6-1.0); GFR1 > 60 mL/min; GLUCOSE SERUM 172 mg/dL (74-106); POTASSIUM SERUM 4.3 mmol/L (3.5-5.1); SODIUM SERUM 137 mmol/L (136-145)
[2019-02-27 18:38] LABS: BAND NEUTROPHIL 4 % (0-10); BASOPHIL 0 % (0-2); METAMYELOCTE 1 % (0-2); MONOCYTE 3 % (0-7); SEGMENTED NEUTROPHILS 87 % (37-75)
[2019-02-27 18:39] LABS: T3 TOTAL 0.47 ng/mL; rbc morphology (normal/abnorm) NORMAL (NORMAL)
[2019-02-27 18:40] LABS: ALKALINE PHOSPHATASE 97 U/L (46-116); ALT/SGPT 123 U/L (14-59); AST/SGOT 24 U/L (15-37); BILIRUBIN TOTAL 0.39 mg/dL (0.20-1.00); C REACTIVE PROTEIN 1.7 mg/dL (<=0.9)
[2019-02-27 18:41] LABS: ALBUMIN 2.4 g/dL (3.4-5.0); TOTAL PROTEIN, SERUM 5.4 g/dL (6.4-8.2)
[2019-02-27 18:45] LABS: UA SPECIFIC GRAVITY 1.025 (1.005-1.035); microscopic required? YES; urine erythrocyte 2+ (NEGATIVE)
--- NOTE | 2019-02-27 18:59 | NUR ---
PT BP DROPPED TO 98/52: AT BEDSIDE. PER INSTRUCED TO GIVE 500ML BOLUS. PT AAOX4, DENIES DIZZINESS FEELING, SPEAKING IN CLEAR AND COMPLETE SENTENCES. PER , HOLD SECOND ORDER OF CARDIZEM AT THIS TIME.
--- NOTE | 2019-02-27 19:12 | NUR ---
RECEIVED PT AWAKE, ALERT, RESPIRATIONS EVEN AND UNLABORED. SAFETY PRECAUTIONS IN PLACE
[2019-02-27 19:13] LABS: CK-MB 2.1 ng/mL (0-3.6)
--- NOTE | 2019-02-27 19:17 | NUR ---
REPORT OFF TO WES,RN
--- NOTE | 2019-02-27 19:24 | NUR ---
TELEPHONE ADMISSION ORDERS RECEIVED FROM DR. KATHY LYON.
[2019-02-27 19:31] LABS: ERYTHROCYTE SED RATE 36 mm/hr (0-30)
--- NOTE | 2019-02-27 19:59 | NUR ---
REPORT GIVEN TO JULIA MANUEL, ALL QUESTIONS AND CONCERNS WERE ADDRESSED
--- NOTE | 2019-02-27 20:20 | NUR ---
RECEIVED PT FROM ED VIA TAWANNA. ORIENTED PT TO ROOM AND SURROUNDINGS. IV NOTED TO LFA PATENT AND INTACT. TELE 16 PLACED ON PT READING NSR. INSTRUCTED PT ON THE USE OF CALL LIGHT FOR ASSISTANCE. ENDORSED PT TO PRIMARY NURSE JULIA
[2019-02-27 20:34] LABS: MAGNESIUM 1.6 mg/dL (1.8-2.4)
[2019-02-27 20:37] LABS: CHOLESTEROL/HDL RATIO 3.8
--- NOTE | 2019-02-27 21:02 | NUR ---
PT DIET CHANGED TO PUREE PER REQUEST, DR. LYON AWARE AND GAVE OK TO CHANGE DIET FROM CARDIAC TO PUREE.
[2019-02-27 21:09] LABS: FREE T4 0.9 ng/dL (0.76-1.46); T4(THYROXINE) 5.2 ug/dL (4.7-13.3)
[2019-02-27 21:14] VITALS: BP 107/70
--- NOTE | 2019-02-27 21:46 | NUR ---
CALLED DR. HALE TO CLARIFY DIGOXIN IV ORDER, PER DR. HALE, DO NOT GIVE AT THIS TIME SINCE PT RHYTHM IS SINUS AND HR IS 85. WILL CARRY OUT ORDERS.
[2019-02-27 22:02] VITALS: BP 107/70
--- NOTE | 2019-02-27 22:19 | NUR ---
PT C/O NAUSEA, MEDICATED PER EMAR WITH PHENERGAN.
--- NOTE | 2019-02-28 00:13 | NUR ---
PT RESTING IN BED WITH EYES CLOSED. BREATHING E/U. NO S/S ACUTE DISTRESS. WILL CONTINUE TO MONITOR.
--- NOTE | 2019-02-28 05:33 | NUR ---
IV TO L WRIST INFILTRATED. LUE ELEVATED AND ALTERNATING HEAT AND ICE PACKS TO SITE. WILL ATTEMPT TO REINSERT.
--- NOTE | 2019-02-28 06:27 | NUR ---
UNABLE TO REINSERT IV AFTER MULTIPLE ATTEMPTS. WILL ENDORSE TO ONCOMING SHIFT. NO S/S ACUTE DISTRESS. DENIES PAIN. WILL CONTINUE TO MONITOR.
[2019-02-28 06:58] LABS: CALCIUM 8.4 mg/dL (8.5-10.1); CARBON DIOXIDE 27.4 mmol/L (21-32); CHLORIDE SERUM 100 mmol/L (98-107); CREATININE SERUM 0.8 mg/dL (0.6-1.0); GFR1 > 60 mL/min; GLUCOSE SERUM 132 mg/dL (74-106); POTASSIUM SERUM 3.8 mmol/L (3.5-5.1); SODIUM SERUM 135 mmol/L (136-145)
[2019-02-28 07:01] LABS: PLATELET COUNT 271 x10^3mcL (130-400)
--- NOTE | 2019-02-28 07:15 | NUR ---
RECEIVED A BEDSIDE REPORT. SEEN PATIENT SITTING UP IN BED KEPT ASKING WHY AM I HERE, AFTER NIGHT NURSE EXPLAINED TO HER MANY TIMES. APPEARS UPSET. PATIENT IS AWAKE, ALERT, ORIENTED TO PERSON, PLACE AND TIME. BREATHING E/U ON ROOM AIR. TELE#16 ST. DENIES CHEST PAIN. ON PUREE DIET. INCONTINENCE URINE. ECHYMOSIS TO BUE, LT FOOT ABRASION, DR HEIN. INCONTINENCE DERMATITIS TO PERIANAL AREA, BLANCHABLE ERYTHMA TO BUTTOCK, OPTIFOAM INPLACE. NO I V ACCESS AT THIS TIME. REORIENTED TO SITUATION. CALL LIGHT PLACED WITHIN EASY REACH. SIDERAILS UP X2.
[2019-02-28 07:46] LABS: RED CELL DISTRIBUTION WIDTH 16.8 % (11.5-14.5)
[2019-02-28 08:02] VITALS: BP 117/76
--- NOTE | 2019-02-28 08:40 | NUR ---
SEEN SITING UP IN BED ASKED FOR MORE COFFEE, COFFEE PROVIDED. AM SCHEDULED MEDS EXPLAINED AND GIVEN TO PATIENT. ABLE TO SWALLOW PILLS, NO ASPIRATION NOTED. REFUSED SOME OF MORNING MEDS, PATIENT ABLE TO RECOGNIZE ALL OF HER MEDS. SNACK PROVIDED PER REQUEST. DENIES CHEST PAIN, DENIES DIZZINESS. GEN BODY WEAKNESS. CALL LIGHT PLACED WITHIN EASY REACH. SIDERAILS UPX2. PATIENT APPEARS MORE CALM AND PLEASANT AFTER AM MEDS. WILL CONTINUE TO MONITOR.
--- NOTE | 2019-02-28 10:49 | NUR ---
NOTED NSR HR=84 ON TELE#16.
[2019-02-28 11:46] LABS: BAND NEUTROPHIL 7 % (0-10); MONOCYTE 3 % (0-7); SEGMENTED NEUTROPHILS 84 % (37-75); rbc morphology (normal/abnorm) ABNORMAL (NORMAL)
[2019-02-28 11:47] LABS: PLATELET MORPHOLOGY PLATELETS NORMAL; burr cell (echinocyte) 1+
[2019-02-28 11:55] VITALS: BP 116/71
--- NOTE | 2019-02-28 15:45 | NUR ---
IV CATH#24 INSERTED TO RIGHT HAND WITH GOOD BLD RETURNED AND FLUSHED WELL BY MAR VIZCARRA AFTER 3X ATTEMPTS BY ME. NO ANY DISTRESS NOTED.
[2019-02-28 16:22] VITALS: BP 18110/6
--- NOTE | 2019-02-28 17:23 | NUR ---
DZMU=[id number], STATED JUST HAD APPLE JUICE AND REFUSED 3 UNITS REGULAR INSULIN SQ. NO ANY DISTRESS THROUGHOUT SHIFT. PAIN RELIEF AFTER MS CONTIN GIVEN THIS AM. MADE AWARE DUE TIME FOR NEXT MS CONTIN IS AT 2100HRS. ON PUREE DIET STATED HAS NO PROBLEM SWALLOWING JUST PREFER PUREE DIET. INCONTINENCE, Z GUARD APPLIED TO PERINEAL AREA. NOTED PATIENT TALKING TO HERSELF OFTEN WITH SOME PERIODS OF FORGETFULNESS OTHERWISE AWAKE, ALERT, ORIENTED X3 THROUGHOUT SHIFT. CALL LIGHT ALWAYS PLACED WITHIN EASY REACH. SIDERAILS UP X2.
[2019-02-28 18:25] VITALS: BP 110/67
--- NOTE | 2019-02-28 19:36 | NUR ---
RECEIVED PT FROM PREVIOUS SHIFT. DROWSY BUT AROUSABLE. TELE #16 SHOWING NSR. DENIES CP. DENIES PAIN. NO N/V. NO S/S ACUTE DISTRESS. IV TO R HAND CDI, SALINE-LOCKED, NO ERYTHEMA OR EDEMA. CALL LIGHT WITHIN REACH. SAFETY MEASURES IN PLACE. WILL CONTINUE TO MONITOR.
[2019-02-28 20:17] VITALS: BP 111/68
--- NOTE | 2019-02-28 20:33 | NUR ---
PT REFUSING RISS, SAYS SHE DOES NOT TAKE INSULIN, REMINDED PT INSULIN WAS GIVEN TO HER LAST NIGHT TO CONTROL BS, PT STILL REFUSED. PT ALSO REFUSING MOTRIN, STATES "IT MAKES MY STOMACH FEEL FUNNY".
--- NOTE | 2019-02-28 22:01 | NUR ---
PT PULLED OUT IV TO R HAND, STATES "IT WAS WET". IV CATHETER INTACT. TOLD PT ANOTHER IV WILL NEED TO BE PLACED, PT SAYS "NO. WHY?", TOLD PT PURPOSE OF IV ACCESS FOR MEDICATIONS, PT ROLLED EYES AND SAYS "NO.".
--- NOTE | 2019-03-01 00:49 | NUR ---
PT RESTING IN BED. OCCASIONALLY TALKING TO SELF, STATES "THERE'S A BIG BAG OF BLOOD", ATTEMPTED TO REORIENT PT AND TOLD HER SHE IS IN THE HOSPITAL. PT RESPONDED "I KNOW WHERE I'M AT, I JUST WANT ANSWERS" THEN BECAME VERY TEARFUL. PT IS AAO TO PLACE, NAME, , AND LOCATION HOWEVER APPEARS TO BE HAVING PERIODS OF CONFUSION. PT AGITATED AT THIS TIME. WILL CONTINUE TO MONITOR.
[2019-03-01 05:12] VITALS: BP 119/72
--- NOTE | 2019-03-01 05:50 | NUR ---
PT MORE COOPERATIVE THIS AM. ALLOWING ATTEMPT TO REINSERT IV. UNABLE TO INSERT IV AFTER 3X ATTEMPTS FROM MAR NUNES. NO S/S ACUTE DISTRESS. NO INDICATIONS OF PAIN. PT REMAINS FORGETFUL, STILL STATES SHE DOES NOT KNOW WHY SHE IS HERE, REORIENTED NEEDED. WILL ENDORSE CARE TO ONCOMING SHIFT.
[2019-03-01 08:02] VITALS: BP 108/71
--- NOTE | 2019-03-01 08:40 | NUR ---
SEEN IN BED RESTING WITH EYES CLOSED, EASILY TO AROUSE, APPEARS DEPRESSED AND SAD. AAOX3. BREATHING E/U ON ROOM AIR. TELE# 16 NSR HR=74. GEN BODY WEAKNESS. INCONTINENCE URINE. OPTIFOAM TO BUTTOCK INPLACE. MULTIPLE ECHYMOSIS TO BUE. INCONTINENCE DERMATITIS TO PERINEAL AREA, Z GUARD APPLIED. NO IV ACCESS AT THIS TIME, WILL CONTINUE TO ATTEMPT. ON PUREE DIET. CALL LIGHT PLACED WITHIN EASY REACH, SIDERAILS UP X2.
--- NOTE | 2019-03-01 09:15 | NUR ---
AM SCHEDULED MEDS GIVEN. PATIENT SWALLOWED PILLS WELL WITHOUT ASPIRATION NOTED. RECEIVED T.O. ORDER FROM DOCTOR HALE FOR EKG AND ELIQUIS. WILL BE CARRIED OUT. PATIENT MADE AWARE PLAN OF CARE.
--- NOTE | 2019-03-01 09:30 | NUR ---
PATIENT REQUESTED TO USE BEDPAN. STATED TODAY FEEL BETTER. PATIENT STATED VOIDED FREELY, BEDPAN REMOVED. PERINEAL AREA CLEANED AND Z GUARD APPLIED TO INCONTINENCE DERMATITIS AREA. NOTED ABLE TO TURN SELF IN BED.
--- NOTE | 2019-03-01 11:51 | NUR ---
ELIQUIS 5MG PO GIVEN PER DOCTOR CHOIR'S ORDER. NO ANY DISTRESS NOTED AT THIS TIME. ENCOURAGED TO TURN AND REPOSITION SELF IN BED EVERY 2 HRS AND PRN TOLERATED. PATIENT VERBALIZED UNDERSTANDING.
[2019-03-01 11:53] VITALS: BP 110/69
--- NOTE | 2019-03-01 14:48 | NUR ---
RESTING WITH EYES CLOSED. NO ANY DISTRESS NOTED.
[2019-03-01 16:30] VITALS: BP 117/76
--- NOTE | 2019-03-01 18:21 | NUR ---
V/S STABLE THROUGHOUT SHIFT. PLEASANT AND COOPERATIVE WITH CARE. PARTIAL BED BATH AND HAIR WASHED DONE BY PETE WYMAN. VOIDED USING BED PACE. TURNED AND REPOSITIONED SELF IN BED.
--- NOTE | 2019-03-01 19:35 | NUR ---
RECEIVED PT FROM PREVIOUS SHIFT. AAO. CHEERFUL. COOPERATIVE WITH CARE. NO IV ACCESS, WILL ATTEMPT TO REINSERT. TELE #16 SHOWING NSR, DENIES CP. DENIES PAIN. DENIES HEADACHE OR DIZZINESS. PT C/O NAUSEA, WILL MEDICATE ONCE IV ESTABLISHED. NO S/S ACUTE DISTRESS. PT STILL HAS PERIODS OF CONFUSION, RESPONDING TO AUDIO HALLUCINATIONS AND TALKING TO SELF. CALL LIGHT WITHIN REACH. SAFETY MEASURES IN PLACE. WILL CONTINUE TO MONITOR.
[2019-03-01 20:28] VITALS: BP 113/65
--- NOTE | 2019-03-01 20:54 | NUR ---
IV INSERTED INTO L WRIST, GOOD BLOOD RETURN AND FLUSHES WELL. MEDICATED PER EMAR FOR NAUSEA.
--- NOTE | 2019-03-01 21:13 | NUR ---
MEDICATED PER EMAR FOR 05/26 GENERALIZED BODY ACHE.
--- NOTE | 2019-03-02 01:08 | NUR ---
PT REQUESTING SANDWICH. GIVEN TO PT. DENIES PAIN. NO S/S ACUTE DISTRESS. BREATHING E/U. OCCASIONALLY TALKING TO SELF. CALL LIGHT WITHIN REACH. SAFETY MEASURESI N PLACE. WILL CONTINUE TO MONITOR.
--- NOTE | 2019-03-02 04:51 | NUR ---
PT C/O 04/25 BODY PAIN, MEDICATED PER EMAR.
[2019-03-02 06:15] VITALS: BP 97/64
[2019-03-02 06:43] LABS: CARBON DIOXIDE 30.5 mmol/L (21-32); CHLORIDE SERUM 103 mmol/L (98-107); GFR1 > 60 mL/min; GLUCOSE SERUM 135 mg/dL (74-106); POTASSIUM SERUM 4.6 mmol/L (3.5-5.1); SODIUM SERUM 141 mmol/L (136-145)
[2019-03-02 07:09] LABS: PLATELET COUNT 293 x10^3mcL (130-400)
[2019-03-02 07:11] LABS: RED CELL DISTRIBUTION WIDTH 16.9 % (11.5-14.5)
[2019-03-02 07:30] VITALS: BP 109/74
--- NOTE | 2019-03-02 07:37 | NUR ---
RECEIVED PT'S REPORT FROM LEAVING NURSE. PT REST ON BED, NO COMPLAIN OF PAIN, HR A-FIB AROUND 110. PT BREATHING ON RA, EVEN, UNLABORED. IV SITE SALINE LOCK.
--- NOTE | 2019-03-02 08:34 | NUR ---
PT HAD BM, PASTY STOOL. CLEAN PT AND APPLY Z-GUARD TO MARIKA AND SACRAL BUTTOCK AREA. OPTIFORM APPLIED TO SCARAL.
--- NOTE | 2019-03-02 09:45 | NUR ---
DR. LYON DECIDED TO DISCHARGE PT IF PT HAS PLACEMENT. MADE DR. LYON AWARE PT'S DAUGHTER CONCERN ABOUT PT'S MENTAL HEALTH. PT COOPERATE WITH CARE THIS MORNING.
[2019-03-02 11:00] LABS: BAND NEUTROPHIL 9 % (0-10); BASOPHIL 0 % (0-2); METAMYELOCTE 2 % (0-2); MONOCYTE 2 % (0-7); PLATELET MORPHOLOGY PLATELETS NORMAL; SEGMENTED NEUTROPHILS 82 % (37-75); rbc morphology (normal/abnorm) NORMAL (NORMAL)
[2019-03-02 13:09] VITALS: BP 114/73
[2019-03-02 17:23] VITALS: BP 104/60
--- NOTE | 2019-03-02 20:00 | NUR ---
PT RESTING WITH EYES CLOSED. EASILY AROUSABLE WITH VERBAL STIMULI. A/A/O X4. DENIES DIZZINESS AND HEADACHE. BREATH SOUNDS CLEAR. BREATHING EVEN AND UNLABORED ON ROOM AIR. DENIES CHEST PAIN AND PRESSURE THUS FAR. BOWEL SOUNDS ACTIVE. NO C/O N/V AND ABD PAIN. EXCORIATION NOTED ON THE MARIKA AREA EXTENDING TO THE COCCYX AREA MELVINA WITH Z DIVINA. LEFT FOOT WITH ABRASION NOTED MELVINA. SCATTERED HEMATOMA NOTED ON BUE. IV SALINE LOCK INTACT ON THE LAFT WRIST. MADE PT COMFORTBLE. PLACED CALL LIGHT WITH IN REACH. WILL CONTINUE TO MONITOR.
[2019-03-02 20:56] VITALS: BP 99/71
--- NOTE | 2019-03-02 21:21 | NUR ---
PT C/O NAUSEA. GAVE PT ZOFRAN IVP AND EMESIS BAG. PT TOLERATED IT WELL. WILL CONTINUE TO MONITOR.
--- NOTE | 2019-03-02 22:35 | NUR ---
DR. HALE MADE AWARE THAT XJ=[phone]'S AND IS AFIB W/ RVR ON THE MONITOR. RECEIVED TELEPHONE ORDERS FROM DR. HALE AND WAS CARRIED OUT. PRIMARY NURSE ROSANNA MADE AWARE
--- NOTE | 2019-03-02 22:47 | NUR ---
PT HEART RATE ABOVE 150'S. PT OBSERVED TO BE ANXIOUS BECAUSE SHE CAN NOT GET A HOLD OF SHE SON VIA PHONE. DENIES CHEST PAIN AND DIZZINESS C/O NAUSEA. DR. HALE NOTIFIED VIA TELEPHONE. NEW ORDERS GIVEN AND CARRIED OUT. WILL CONTINUE TO MONITOR.
[2019-03-02 23:01] VITALS: BP 95/56
--- NOTE | 2019-03-02 23:01 | NUR ---
PT HEART RATE IN THE 150'S-170'S. GAVE PT DIGOXIN SLOW IVP. PT TOLERATED IT WELL. WILL CONTINUE TO MONITOR.
--- NOTE | 2019-03-02 23:59 | NUR ---
PT RESTLESS AND ANXIOUS. PT STATING "I DONT WANT TO . IM SCARED.". GAVE PT ATIVAN PO. PT TOLERATED IT WELL. WILL CONTINUE TO MONITOR.
[2019-03-03 00:29] VITALS: BP 108/88
--- NOTE | 2019-03-03 00:44 | NUR ---
PT'S JT=534, HZ=552/80, REPEAT YZ=905/71 AND 108/88. CARDIZEM 10 MG SLOW IVP GIVEN ORDERED.
--- NOTE | 2019-03-03 01:03 | NUR ---
BP-111/85, GU=163 ON THE MONITOR. MEDICATED WITH 0.25 MG SLOW IVP, DOSE VERIFIED W/ MAR BROWN.
--- NOTE | 2019-03-03 01:47 | NUR ---
DR. HALE PAGED REGARDING PATIENS CONDITION. AWAITING FOR CALL BACK. 0155 DR. HALE CALLED BACK AND MADE AWARE OF PATIENTS UNABLE TO GET A READING FROM AUTOMATIC BP MACHINE AND EVEN WITH MANUAL BP, UNABLE TO GET BP. ABLE TO GET SBP VIA DOPPLER AND HEARD ONLY ON TH 80S SBP. HR CONT TO BE 134-145 ST/AFIB, DESPITE OF 2 DOSES OF LANOXIN IV AND CARDIZEM 10MG IV X1 PER ORDER. PT COMPLAINING OF BILATERALLY HIP PAIN, PT STATES IT HER ADDISONS DISEASE AND SHE NEEDS HER SHOTS (SHE HAS SOLUCORTEF MED THAT SHE KEEPS IN HER PURSE). UNABLE TO GIVE PAIN MED AT THIS TIME DUE TO LOW BP. RT ARM BP ALSO CHECKED AND READING ON THE 90S. 02 SAT 98-100% ON 2LNC. PT YELLING AND POSITIONING SELF TO LT SIDE FOR COMFORT, BUT SBP DROPS TO 70'S AND PT THEN REPOSITIONED WITH HOB FLAT. LOWER EXTREMTIIES PALE IN COMPARISON TO UPPER EXTREMITIES AND UPPER BODY AND TRUNK AREA. REPORT ALL TO DR. HALE. DR. HALE ORDER NS 250CC IV BOLUS AND STARTED AND TO TRANSFER PT TO ICU FOR CARDIZEM DRIP. SUP ASHLEY MADE AWARE. 0200AM DR. LYON INFORMED OF ABOVE AND OK TO TRANSFER TO ICU PER DR. HALE. 0220 REPORT GIVEN TO ALBERT. PT TRANSFER TO ICU 4 VIA BED WITH PORTABLE 02 AND PERSONNEL MONITOR. BELONGINGS LIST DONE.
--- NOTE | 2019-03-03 01:52 | NUR ---
PT RESTLESS AND YELLING "HELP! HELP ME! IT HURTS." HEART RATE IN THE HIGH 130'S. UNABLE TO GET BLOOD PRESSURE WITH AUTOMATIC MACHINE. AND BLOOD PRESSURE IS OBTAINED MANUALLY VIA DOPPLER THUS FAR. SYSTOLIC READING ON THE 80'S. WILL CONTINUE TO MONITOR.
--- NOTE | 2019-03-03 02:01 | NUR ---
TRIED CALLING THE PATIENTS SON SUGEY WITH TELEPHONE NUMBER COMING FROM THE PT FACESHEET TO INFORM THE SON ABOUT PATIENT BEING TRANSFFERED TO ICU. PHONE NUMBER NOT WORKING. PT NOT ABLE TO GIVE US PHONE NUMBER FROM HER CELL PHONE. WILL ENDORSE TO RECEIVING NURSE ALBERT OF ICU.
--- NOTE | 2019-03-03 02:20 | NUR ---
RECIEVED FROM MAR MARTE. NURSING UPDATES. POC DISCUSSED. AWAITING PT.
--- NOTE | 2019-03-03 02:30 | NUR ---
PT ARRIVED FROM [facility]ST/TELE. NURSING UPDATES. POC DISCUSSED. PT W/ A&OX3. ABLE TO FOLLOW COMMANDS AND COMMUNICATE NEEDS. O2 SIMPLE MASK 7L. O2 SAT 97%. PT ATTEMPTING TO REMOVE MASK AND INSTRUCTED NOT TO. PULSES MOD BUE&WEA BLE. CAP REFILL < 3 SEC. HR SINUS TACHY. BLANCHABLE REDNESS TO PERINEAL/ REDNESS. NO FEEDING AT THIS TIME. R WRIST 20 G IV W/ BOLUS NS. PT VOIDS FREELY. PAIN STATED NONE. FALL RISK FOR GENERALIZED WEAKNESS.
--- NOTE | 2019-03-03 03:41 | NUR ---
CALLED PLACED TO MARCIO TO GET PATIENT'S SON PHONE NUMBER DUE UNABLE TO GET A HOLD OF SON. PTS SON PHONE NUMBER IS [phone] AND CORRECTED IN FACE SHEET. SPOKEN WITH PATIENTS SON SUGEY AND MADE AWARE OF PT CHANGE IN CONDITION AND PT WAS TRANSFERRED TO ICU. CALL TRANSFER TO ICU NURSE ALBERT FOR UPDATE.
--- NOTE | 2019-03-03 04:00 | NUR ---
NOTIFIED BY SUGEY HEBERT [phone] FOR IF PT BECOMES CRITICAL TO NOTIFY HIM FOR POSSIBILITY OF HIM COMING. STATED HE WILL ATTEMPT TO COME IN THE MORNING. WILL ENDORSE TO ONCOMING RN.
[2019-03-03 04:15] VITALS: BP 119/73
--- NOTE | 2019-03-03 04:52 | NUR ---
LINENS CHANGED. PT W/ SOFT GREEN/BROWN STOOL. CLEANED AND CHANGED. WILL CONT TO MONITOR.
--- NOTE | 2019-03-03 04:57 | NUR ---
HR OF 70. CARDIZEM DRIP TITRATED OFF.
--- NOTE | 2019-03-03 05:03 | NUR ---
PT HEART RATE AT 68 AT THIS TIME, PATIENT UNRESPONSIVE, AGONAL BREATHING AT THIS TIME, PUPILS DILATED. CODE BLUE CALLED AT THIS TIME, CPR INITIATED. SEE CODE BLUE SHEET.
--- NOTE | 2019-03-03 05:31 | NUR ---
PATIENT OBTUNDED, 7.5 ETT, 25 LL TO VENT SETTINGS, AC MODE, RATE 14, VT 500, PEEP 5, FIO2 100%. R FEMORAL CENTRAL LINE PLACED BY DR. RAVI.
[2019-03-03 05:40] VITALS: BP 84/42
--- NOTE | 2019-03-03 05:42 | NUR ---
PATIENT HYPOTENSIVE AT THIS TIME, PER DR. RAVI TO START LEVOPHED DRIP.
--- NOTE | 2019-03-03 06:00 | NUR ---
DR LYON MADE AWARE OF CODE. DR RAVI ALSO NOTED WILL CALL LATER FROM ER. AWAITING ORDERS @ THIS TIME.
[2019-03-03 06:19] VITALS: BP 84/42
--- NOTE | 2019-03-03 06:28 | NUR ---
PATIENT HYPOTENSIVE AT THIS TIME, LEVOPHED AT 30 MCG/MIN, SPOKE WITH DR. LYON, NEW ORDERS RECEIEVED.
--- NOTE | 2019-03-03 06:38 | NUR ---
DOPAMINE STARTED AT 5 MCG/KG/MIN AT THIS TIME, WILL MONITOR PT CLOSELY.
--- NOTE | 2019-03-03 06:40 | NUR ---
SISTER IN LAW CALLED AND SPOKE TO ON THE PHONE. RELAYED CODE WHILE MAINTAINING HIPPA. SISTER IN LAW STATED SHE WANTED TO COME SO THAT PATIENT DIDN'T HAVE TO BE ALONE. NOTED AND SHE HUNG UP BEFORE DISCOVERING ETA.
--- NOTE | 2019-03-03 06:45 | NUR ---
SPOKE W/ DR HALE FOR PT. ORDERS RECIEVED. WILL ENDORSE.
[2019-03-03 07:15] VITALS: BP 50/38; BP 80/38
--- NOTE | 2019-03-03 07:15 | NUR ---
SPOKE WITH DR. HALE, NEW ORDERS RECEIEVED. PATIENT IS EXTERNALLY PACED TO 60 BPM AT THIS TIME PER DR. HALE.
--- NOTE | 2019-03-03 07:17 | NUR ---
CXR AT BEDSIDE.
--- NOTE | 2019-03-03 07:30 | NUR ---
THE PATIENT FOUND COMATOSE, UNRESPONSIVE TO ANY STIMULI. NITHYA PUPILX FIXED 7MM TO LIGHT. ETT 7.[address] AND SECURED AT 25CM AT LIPLINE. ETT TO VENT VIA VCV/AC MODE: FIO2 100%, RATE 14, VT 500, PEEP 5. PATIENT HAS AGONAL BREATHING. CVC NOTED AT RIGHT FEMORAL. IO TO RLE. IV SITE TO RIGHT WRIST LEAKING. PATIENT IS ON LEVEPHED AT 30MCG/MIN AND DOPAMINE AT 20MCG/KG/MIN. UNABLE TO CHECK BP AT TIMES DUE TO VERY LOW BP. PATIENT IS ON EXTERNAL PACING AT RATE OF 60 PER MIN AND 50mA. BED AT LOWEST POSITION. SIDE RAILS UP X3.
--- NOTE | 2019-03-03 08:12 | NUR ---
PROVIDED UPDATES TO PT'S SON SUGEY. PER SUGEY HE IS ON HIS WAY TO HOSPITAL.
[2019-03-03 08:19] VITALS: BP 33/18
[2019-03-03 08:32] LABS: BASOPHIL % 0.2 % (0-2)
[2019-03-03 08:38] LABS: PLATELET COUNT 211 x10^3mcL (130-400)
[2019-03-03 08:45] LABS: RED CELL DISTRIBUTION WIDTH 16.9 % (11.5-14.5)
--- NOTE | 2019-03-03 08:45 | NUR ---
[facility] CRITICAL REPORT: WBC 23.8, HG 6.1, HCT 18.2. DR. HALE AT BEDSIDE AWARE ABOUT THIS CRITICAL RESULT.
--- NOTE | 2019-03-03 08:50 | NUR ---
MADE FONTANA TO DR. HALE HGB 6.1 AND HCT 18. PER MD TO TRANSFUSE 2U OF PRBC.
--- NOTE | 2019-03-03 08:52 | NUR ---
PT'S LATEST TROP 0.322. DR. HALE AWARE.
[2019-03-03 08:54] LABS: BILIRUBIN TOTAL 0.6 mg/dL (0.20-1.00); CALCIUM 11.2 mg/dL (8.5-10.1)
[2019-03-03 09:12] LABS: ALBUMIN 1.4 g/dL (3.4-5.0); CARBON DIOXIDE 9.1 mmol/L (21-32); TOTAL PROTEIN, SERUM 3.6 g/dL (6.4-8.2)
[2019-03-03 09:13] LABS: POTASSIUM SERUM 6.9 mmol/L (3.5-5.1)
--- NOTE | 2019-03-03 09:27 | NUR ---
DR. PRINCE AT ROUNDS WITH RESIDENTS AND MYSELF. PROVIDED UPDATES TO OF MAP TRENDING AT 60'S, PT'S ON CPAP. PER MD TO GIVE 1L NS BOLUS STAT. WILL ENTER ORDERS.
--- NOTE | 2019-03-03 09:30 | NUR ---
AT 0805: DR. HALE IS AT BEDSIDE EXAMING THE PATIENT AT 0815: SODIUM BICARB 50ML IVP X2 ADMINSTERED TO THE PATIENT AND GALARZA CATH INSERTED PER DR. HALE'S INSTRUCTION. SCANT AMOUNT CLOUDY YELLOW URINE OUTPUT AT TIP OF F/C. AT 0820: ATROPINE 1 DOSE (1MG): IVP GIVEN TO PATIENT PER DR. HALE'S ORDER. AT 0825: ANOTHER ATROPINE DOSE IVP MEDICATED TO THE PATIENT PER DR. HALE'S ORDER. AT 0840: ONE MORE DOSE OF ATROPINE ADIMINISTERED TO THE PATIENT PER DR. HALE'S ORDER. AT 0855: DR. HALE TALKING TO THE PATIENT'S SON, SUGEY HEBERT AND HIS ABOUT THE PATIENT' STATUS AND ASKS THE FAMILY ABOUT CODE STATUS: DNR VS. FULL CODE. AT 0912: DR. HALE AND DISCUSS ABOUT THE PATIENT AND ARE INFORMED OF ALL THE CRITICAL LAB RESULTS. AT 0925: DR. LYON INFORMS THE SON AGAIN ABOUT THE PATIENT' STATUS.
--- NOTE | 2019-03-03 09:50 | NUR ---
SPOKE WITH DR. LYON TO MAKE AWARE THAT PT NO LONGER HAVE A PULSE AND FAMILY WANTS PT TO BE A DNR. AWAITING FOR DR. LYON FOR ORDERS AND AWAITING TO PRONOUCE.
--- NOTE | 2019-03-03 10:02 | NUR ---
THE PATIENT CHECKED: UNABLE TO DETECT PULSES VIA DOPPLER. DR. BOWER IS AT STATION IS NOTIFIED OF THAT. DR. BOWER COMES TO THE BEDSIDE EXAMING THE PATIENT AND CHECKING THE PULSES AGAIN VIA DOPPLER. NO HEART BEAT PER DR. BOWER. DR. BOWER TALKS TO THE SON AND HIS ABOUT THE PATIENT'S STATUS: NO PULSES, NO BP, NOR O2 SAT. PATIENT REMAINS ON EXTERNAL PACING AND VENT. THE SON SUGEY STILL WANTS TO WAIT FOR HIS SISTER TO COME TO SEE THE PATIENT BEFORE VENT AND PACING DISCONTINUE.
--- NOTE | 2019-03-03 10:15 | NUR ---
DR. BOWER AT BEDSIDE ASSESSING PT. PORTABLE CARDIC ULTRASOUND AT BEDSIDE TO SEARCH FOR PT'S APICAL PULSE, WEAK SIGNS OF HEART BEAT. DR. BOWER INFORMED FAMILY OF PT'S CONDITION. FAMILY REQUEST TO NOT TO EXTUBATE UNTIL DAUGHTER ARRIVES. EXTERNAL PACING REMAINS IN PLACE.
[2019-03-03 11:44] LABS: rbc morphology (normal/abnorm) ABNORMAL (NORMAL)
--- NOTE | 2019-03-03 12:00 | NUR ---
ALL THE FAMILY INCLUDING SON, SUGEY, DAUGHTER IN LAW VIKI, DAUGHTER MIRNA AND HER EX IS AT BEDSIDE. DR. BOWER ORDERS TURNS OFF PACING AND VENT. TELE SHOWS ASYSTOLE. DR. BOWER PRONOUCES THE PATIENT'S TO THE FAMILY.
--- NOTE | 2019-03-03 12:34 | NUR ---
NOTE FROM 1200 TO 1225: INSTALLER INSPECTOR FINAL LADY Combs WAS CALLED AND NOTIFIED THE PATIENT'S . ADMITTING DEPT WAS CALLED; GÓMEZ ANSWERED THE PHONE AND WAS INFORMED OF THE PATIENT'S . DR. LYON WAS CALLED AND INFORMED OF THE PATIENT'S . [facility] WAS CALLED; SANDY ANSWERED THE PHONE AND WAS NOTIFIED OF THE PATIENT'S . CASE NUMBER RELEASED # [id number]. [facility] WAS CALLED; VINH ANSWERED THE PHONE AND WAS INFORMED OF THE PATIENT'S . AWAITING FOR [facility] TO CALL BACK. (SEE THE RECORD OF FOR DETAIL).
--- NOTE | 2019-03-03 16:29 | NUR ---
CALLING [facility] AGAIN TO REMIND THAT THE CASE NEEDS TO BE RELEASED.
--- NOTE | 2019-03-03 16:51 | NUR ---
DANAY BAINS, DROPHAMMER OPERATOR CALLED BACK AND WAS UPDATED THE PATIENT'S CONDITION. DANAY RELEASES THE DECEDENT WITH .
--- NOTE | 2019-03-03 18:01 | NUR ---
POST MORTEM CARE PROVIDED TO THE DECENDENT.
--- NOTE | 2019-03-03 18:10 | NUR ---
THE DECENDENT IS TAKEN TO IN HOUSE MORTUARY BY SECURITY STAFF AT THIS TIME.
== END 2019-03-03 18:15 | disposition expired | DRG 720 ==
LOC: ED 17:01 → DU 19:26 → IC 03-03 02:30
PROVIDERS: Specialist; ADMIT Internal Medicine
PROC: 0BH17EZ Insertion of Endotracheal Airway into Trachea, Via Natural or Artificial Opening (ICD-10-PCS; 2019-02-27)
PROC: 5A1935Z Respiratory Ventilation, Less than 24 Consecutive Hours (ICD-10-PCS; principal; 2019-03-03)
DX: A41.9 Sepsis, unspecified organism (principal); J96.00 Acute respiratory failure, unspecified whether with hypoxia or hypercapnia; E43 Unspecified severe protein-calorie malnutrition; N17.9 Acute kidney failure, unspecified; I50.9 Heart failure, unspecified; I11.0 Hypertensive heart disease with heart failure; I48.91 Unspecified atrial fibrillation; E86.0 Dehydration; E27.1 Primary adrenocortical insufficiency; E87.6 Hypokalemia; I25.10 Atherosclerotic heart disease of native coronary artery without angina pectoris; D64.9 Anemia, unspecified; Z66 Do not resuscitate; Z68.23 Body mass index [BMI] 23.0-23.9, adult; Z79.84 Long term (current) use of oral hypoglycemic drugs; Z88.2 Allergy status to sulfonamides; Z88.6 Allergy status to analgesic agent; Z98.51 Tubal ligation status; Z82.49 Family history of ischemic heart disease and other diseases of the circulatory system; Z95.0 Presence of cardiac pacemaker
CPT/HCPCS: 36600; 82962; 84439; G0378; J0171; J1160; J1265; J1720; J2370; J2405; J2550; J3490; J7030; J8540; Q0092